=== PATIENT | female | born 1960 | race Hispanic/Latino ===

== ENCOUNTER 2018-02-07 11:53 | Outpatient (CLI) | payer OTHER ==
[2018-02-07] MEDS ORDERED: PROVENTIL IH ONE (12:54)
== END 2018-02-07 11:54 | disposition home or self-care (01) ==
LOC: PF 11:53
PROVIDERS: ATTEND Internal Medicine
DX: J44.9 Chronic obstructive pulmonary disease, unspecified (principal)
CPT/HCPCS: 94060; 94640

== ENCOUNTER 2018-08-21 11:12 | Inpatient (IN) | payer MEDICAID, MEDICARE, OTHER ==
[2018-08-21] MEDS ORDERED: DUONEB *Not for PRN Use IH ONE (11:42)
[2018-08-21] MEDS ORDERED: PROVENTIL IH ONE (12:15)
[2018-08-21] MEDS ORDERED: ATROVENT IH ONE (12:15)
[2018-08-21] MEDS ORDERED: MAGNESIUM SULFATE 2GM/50ML 2 GM/50 ML BAG IV ONE (12:15)
[2018-08-21] MEDS ORDERED: SOLU-Medrol IV ONE (12:15)
--- NOTE | 2018-08-21 12:24 | Emergency Department Report ---
HPI - General Chief Complaint: Dyspnea/Respdistress Time Seen by Provider: 08/21/18 11:51 - HPI HPI: Room 9 The patient is a 58-year-old female presenting with a chief complaint of shortness of breath. The patient experienced a productive cough for the past 4 days. Family states patient has had chest congestion as well as weakness does not get out of bed. The patient went to her primary physician's office today and was found to be hypoxic with an SPO2 in the 80s. Patient's was subsequently sent to the ED via EMS. The patient arrives to the ED wearing a 100% nonrebreather. The patient was taken off the nonrebreather and placed on 3 L nasal cannula by Respiratory therapy Location: Lungs Duration: 4 days Quality: Hypoxic Severity: Moderate Modifying factors: [see above] Context: [see above] Mode of transportation: [not driving] ED Past Medical Hx - Past Medical History Previous Medical History?: Yes Hx Psychiatric Treatment: Yes (anxiety, depression) Hx Asthma: Yes Hx COPD: Yes (2 L home O2) Additional medical history: fibromylgia - Surgical History Past Surgical History?: No - Family History Family history: no significant - Social History Smoking Status: Former Smoker (none 1 year) Substance Use Type: None (denies illicit drug use) ED Review of Systems ROS: Stated complaint: FERNANDA Other details as noted in HPI Constitutional: malaise Eyes: denies: eye pain ENT: denies: throat pain Respiratory: cough, shortness of breath, wheezing Cardiovascular: denies: chest pain Endocrine: no symptoms reported Gastrointestinal: denies: abdominal pain Genitourinary: denies: dysuria Musculoskeletal: myalgia Neurological: denies: headache Physical Exam - Physical Exam Vital Signs: Vital Signs 08/21/18 11:37 Pulse Rate 120 H Respiratory 23 Rate Blood Pressure 135/80 O2 Sat by Pulse 86 Oximetry Physical Exam: GENERAL: The patient is well-developed well-nourished female lying on stretcher using accessory muscles HEENT: Normocephalic. Atraumatic. Extraocular motions are intact. Patient has moist mucous membranes. NECK: Supple. Trachea midline CHEST/LUNGS: Diffusely diminished. Wheezing diffusely. Accessory muscle use. HEART/CARDIOVASCULAR: Regular. There is no tachycardia. There is no gallop rub or murmur. ABDOMEN: Abdomen is soft, nontender. Patient has normal bowel sounds. There is no abdominal distention. SKIN: There is no rash. There is no diaphoresis. NEURO: The patient is awake and oriented. The patient is cooperative. The patient has normal speech MUSCULOSKELETAL: There is no evidence of acute injury. ED Course Vital Signs 08/21/18 11:37 Pulse Rate 120 H Respiratory 23 Rate Blood Pressure 135/80 O2 Sat by Pulse 86 Oximetry ED Medical Decision Making - Lab Data Result diagrams: 08/21/18 12:31 08/21/18 13:12 Laboratory Tests 08/21/18 08/21/18 08/21/18 12:20 12:31 13:12 WBC 8.7 RBC 4.59 Hgb 14.5 H Hct 43.5 H MCV 95 MCH 32 MCHC 33 RDW 12.8 L Plt Count 302 Add Manual Diff Complete Total Counted 100 Seg Neutrophils % Correctional Nurse Seg Neuts % (Manual) 98.0 H Band Neutrophils % 0 Lymphocytes % (Manual) 2.0 L Reactive Lymphs % (Man) 0 Monocytes % (Manual) 0 Eosinophils % (Manual) 0 Basophils % (Manual) 0 Metamyelocytes % 0 Myelocytes % 0 Promyelocytes % 0 Blast Cells % 0 Nucleated RBC % Not Reportable Seg Neutrophils # Man 8.5 H Band Neutrophils # 0.0 Lymphocytes # (Manual) 0.2 L Abs React Lymphs (Man) 0.0 Monocytes # (Manual) 0.0 Eosinophils # (Manual) 0.0 Basophils # (Manual) 0.0 Metamyelocytes # 0.0 Myelocytes # 0.0 Promyelocytes # 0.0 Blast Cells # 0.0 WBC Morphology Not Reportable Hypersegmented Neuts Not Reportable Hyposegmented Neuts Not Reportable Hypogranular Neuts Not Reportable Smudge Cells Not Reportable Toxic Granulation Not Reportable Toxic Vacuolation Not Reportable Dohle Bodies Not Reportable Pelger-Huet Anomaly Not Reportable Jory Rods Not Reportable Platelet Estimate Consistent w auto Clumped Platelets Not Reportable Plt Clumps, EDTA Not Reportable Large Platelets Not Reportable Giant Platelets Not Reportable Platelet Satelliting Not Reportable Plt Morphology Comment Not Reportable RBC Morphology Not Reportable Dimorphic RBCs Not Reportable Polychromasia Not Reportable Hypochromasia Not Reportable Poikilocytosis 1+ Anisocytosis 1+ Microcytosis Not Reportable Macrocytosis Not Reportable Spherocytes Not Reportable Pappenheimer Bodies Not Reportable Sickle Cells Not Reportable Target Cells Not Reportable Tear Drop Cells Not Reportable Ovalocytes Not Reportable Helmet Cells Not Reportable [place] Bodies Not Reportable [place] Rings Not Reportable Beth Cells Not Reportable Bite Cells Not Reportable Crenated Cell Not Reportable Elliptocytes Not Reportable Acanthocytes (Spur) Not Reportable Rouleaux Not Reportable Hemoglobin C Crystals Not Reportable Schistocytes Not Reportable Malaria parasites Not Reportable Eugenio Bodies Not Reportable Hem Pathologist Commnt No PT 13.3 INR 0.95 APTT 27.2 POC ABG pH 7.181 L POC ABG pCO2 96.0 H POC ABG pO2 195 H POC ABG HCO3 35.9 POC ABG Total CO2 39 POC ABG O2 Sat 99 POC ABG Base Excess 8 FiO2 36 Sodium Potassium Chloride Carbon Dioxide Anion Gap BUN Creatinine Estimated GFR BUN/Creatinine Ratio Glucose Calcium Total Creatine Kinase CK-MB (CK-2) CK-MB (CK-2) Rel Index Troponin T NT-Pro-B Natriuret Pep 08/21/18 13:12 WBC RBC Hgb Hct MCV MCH MCHC RDW Plt Count Add Manual Diff Total Counted Seg Neutrophils % Seg Neuts % (Manual) Band Neutrophils % Lymphocytes % (Manual) Reactive Lymphs % (Man) Monocytes % (Manual) Eosinophils % (Manual) Basophils % (Manual) Metamyelocytes % Myelocytes % Promyelocytes % Blast Cells % Nucleated RBC % Seg Neutrophils # Man Band Neutrophils # Lymphocytes # (Manual) Abs React Lymphs (Man) Monocytes # (Manual) Eosinophils # (Manual) Basophils # (Manual) Metamyelocytes # Myelocytes # Promyelocytes # Blast Cells # WBC Morphology Hypersegmented Neuts Hyposegmented Neuts Hypogranular Neuts Smudge Cells Toxic Granulation Toxic Vacuolation Dohle Bodies Pelger-Huet Anomaly Jory Rods Platelet Estimate Clumped Platelets Plt Clumps, EDTA Large Platelets Giant Platelets Platelet Satelliting Plt Morphology Comment RBC Morphology Dimorphic RBCs Polychromasia Hypochromasia Poikilocytosis Anisocytosis Microcytosis Macrocytosis Spherocytes Pappenheimer Bodies Sickle Cells Target Cells Tear Drop Cells Ovalocytes Helmet Cells [place] Bodies [place] Rings Beth Cells Bite Cells Crenated Cell Elliptocytes Acanthocytes (Spur) Rouleaux Hemoglobin C Crystals Schistocytes Malaria parasites Eugenio Bodies Hem Pathologist Commnt PT INR APTT POC ABG pH POC ABG pCO2 POC ABG pO2 POC ABG HCO3 POC ABG Total CO2 POC ABG O2 Sat POC ABG Base Excess FiO2 Sodium 131 L Potassium 4.9 Chloride 88.6 L Carbon Dioxide 32 H Anion Gap 15 BUN 9 Creatinine 0.5 L Estimated GFR > 60 BUN/Creatinine Ratio 18 Glucose 110 H Calcium 9.0 Total Creatine Kinase 114 CK-MB (CK-2) 8.0 H CK-MB (CK-2) Rel Index 7.0 H Troponin T < 0.010 NT-Pro-B Natriuret Pep 719.5 - EKG Data -: EKG Interpreted by Me EKG shows normal: sinus rhythm Rate: tachycardia (103 bpm) - EKG Data When compared to previous EKG there are: previous EKG unavailable Interpretation: other (no ischemic changes seen) - Radiology Data Radiology results: report reviewed (chest x-ray), image reviewed (chest x-ray) interpreted by me: Chest x-ray-no focal infiltrates, no pneumothorax [address] [address] XRay Report Signed Patient: MICHAEL TRUJILLO MR#: [id number] : 1960 Acct:[id number] Age/Sex: 58 / F ADM Date: 08/21/18 Loc: ED Attending Dr: Ordering Physician: LINNEA STEINER MD Date of Service: 08/21/18 Procedure(s): XR chest 1V ap Accession Number(s): [id number] cc: LINNEA STEINER MD Fluoro Time In Minutes: AP CHEST: HISTORY: Shortness of breath The lungs are hyperinflated consistent with advanced emphysema. There is minor linear scarring in the right upper lobe. No obvious pneumonia, mass, pleural effusion or pneumothorax. Heart size is within normal limits. The bony structures are grossly intact. IMPRESSION: Emphysema. Transcribed By: TTR Dictated By: MAGNUS MELLO JR, MD Electronically Authenticated By: MAGNUS MELLO JR, MD Signed Date/Time: 08/21/181321 DD/ 21 TD/TT: 08/21/181321 - Differential Diagnosis COPD exacerbation, pneumonia, respiratory failure Critical care attestation.: If time is entered above; I have spent that time in minutes in the direct care of this critically ill patient, excluding procedure time. ED Disposition Clinical Impression: COPD exacerbation, Hypercapnia Disposition: OP ADMIT IP TO THIS HOSP Is pt being admited?: Yes Does the pt Need Aspirin: No Condition: Fair Instructions: Chronic Obstructive Pulmonary Disease (ED) Referrals: WILBERTO CRAWFORD MD [Primary Care Provider] - 3-5 Days Time of Disposition: 14:04 (hospitalist paged (Dr Carlin))
[2018-08-21] MEDS ORDERED: ATIVAN IV ONE (12:27)
[2018-08-21 12:48] LABS: Hematocrit 43.5 % (30.3-42.9); Hemoglobin 14.5 gm/dl (10.1-14.3); Mean Corpuscular HGB Conc 33 % (30-34); Mean Corpuscular Volume 95 fl (79-97); Platelet Count 302 K/mm3 (140-440); Red Blood Count 4.59 M/mm3 (3.65-5.03); Red Cell Distribution Width 12.8 % (13.2-15.2)
[2018-08-21 13:20] LABS: Basophils % (Manual) 0 % (0.0-1.8); Monocytes % (Manual) 0 % (0.0-7.3); Total Cells Counted 100
[2018-08-21 13:21] LABS: Anisocytosis 1+; Eosinophils % (Manual) 0 % (0.0-4.3); Platelet Estimate Consistent w Auto; Poikilocytosis 1+
--- NOTE | 2018-08-21 13:25 | XRay Report ---
AP CHEST: HISTORY: Shortness of breath The lungs are hyperinflated consistent with advanced emphysema. There is minor linear scarring in the right upper lobe. No obvious pneumonia, mass, pleural effusion or pneumothorax. Heart size is within normal limits. The bony structures are grossly intact. IMPRESSION: Emphysema.
[2018-08-21 13:45] LABS: INR 0.95 (0.87-1.13)
[2018-08-21 13:46] LABS: Partial Thromboplastin Time 27.2 Sec. (24.2-36.6)
[2018-08-21 13:52] LABS: BUN/Creatinine Ratio 18; Blood Urea Nitrogen 9 mg/dL (7-17); Hemolysis Index 8
[2018-08-21] MEDS ORDERED: PROVENTIL IH PRN ×2 (18:45→20:39)
[2018-08-21] MEDS ORDERED: SOLU-Medrol IV SCH (20:00)
[2018-08-21] MEDS ORDERED: TYLENOL PO PRN (20:35)
[2018-08-21] MEDS ORDERED: ZOFRAN IV PRN (20:35)
[2018-08-21] MEDS ORDERED: SODIUM CHLORIDE FLUSH SYRINGE 10 ML IV PRN (20:35)
[2018-08-21] MEDS ORDERED: DILAUDID IV PRN (20:35)
[2018-08-21] MEDS ORDERED: NON-FORMULARY (Loratadine [Loratadine] 10 MG) PO SCH (20:45)
[2018-08-21] MEDS ORDERED: LEVAQUIN 750MG/150ML 750 MG/150 ML BAG IV SCH (21:00)
[2018-08-21] MEDS: ROCEPHIN/NS 2 GM/100 ML 2 GM/100 ML BAG IV SCH (21:28)
[2018-08-21] MEDS ORDERED: ZESTRIL ONE (21:51)
[2018-08-21] MEDS ORDERED: SOLU-Medrol ONE (21:51)
[2018-08-21] MEDS ORDERED: PEPCID IV ONE (21:51)
[2018-08-21] MEDS: ZITHROMAX 500 MG in NACL 0.9% 250ML 250 ML IV SCH (21:55)
[2018-08-21] MEDS ORDERED: PEPCID ONE (21:56)
[2018-08-21] MEDS: ZESTRIL PO SCH (22:00)
[2018-08-21] MEDS ORDERED: PEPCID IV SCH (22:00)
[2018-08-21] MEDS: SODIUM CHLORIDE FLUSH SYRINGE 10 ML IV SCH (22:10)
[2018-08-21] MEDS: PEPCID PO SCH (22:13)
[2018-08-21] MEDS ORDERED: PERCOCET 5/325 ONE (22:15)
[2018-08-21] MEDS: PERCOCET 5/325 PO PRN (22:18)
[2018-08-21] MEDS ORDERED: NACL 0.9% 1000 ML 1,000 ML ONE (22:25)
[2018-08-21] MEDS ORDERED: CLARITIN ONE (22:25)
[2018-08-21] MEDS ORDERED: FLEXERIL ONE (22:25)
[2018-08-21] MEDS: NACL 0.9% 1000 ML 1,000 ML IV SCH (22:28)
[2018-08-21] MEDS ORDERED: ZOFRAN ONE (22:28)
[2018-08-21] MEDS: FLEXERIL PO PRN (22:30)
[2018-08-21] MEDS: CLARITIN PO SCH (22:36)
[2018-08-21] MEDS ORDERED: XANAX ONE (22:42)
[2018-08-21] MEDS: XANAX PO SCH (22:48)
[2018-08-22] MEDS ORDERED: LEVAQUIN 750MG/150ML 750 MG/150 ML BAG IV ONE (00:03)
[2018-08-22] MEDS ORDERED: SOLU-Medrol ONE ×4 (00:10→14:13)
[2018-08-22] MEDS: SOLU-Medrol IV SCH ×4 (00:37→21:29)
[2018-08-22 06:11] LABS: Basophils % (Auto) 0.5 % (0.0-1.8); Hematocrit 38.9 % (30.3-42.9); Hemoglobin 12.9 gm/dl (10.1-14.3); Lymphocytes # (Auto) 0.3 K/mm3 (1.2-5.4); Lymphocytes % (Auto) 6.9 % (13.4-35.0); Mean Corpuscular HGB Conc 33 % (30-34); Mean Corpuscular Volume 95 fl (79-97); Monocytes # (Auto) 0.2 K/mm3 (0.0-0.8); Monocytes % (Auto) 3.3 % (0.0-7.3); Platelet Count 245 K/mm3 (140-440); Red Blood Count 4.09 M/mm3 (3.65-5.03)
[2018-08-22 06:22] LABS: BUN/Creatinine Ratio 48; Blood Urea Nitrogen 19 mg/dL (7-17); Calcium 8.2 mg/dL (8.4-10.2); Hemolysis Index 76
--- NOTE | 2018-08-22 06:30 | History and Physical Report ---
History of Present Illness Date of examination: 08/21/18 Date of admission: 08/21/18 14:19 Chief complaint: Increasing SOB for 4 days and Cough for 4 days History of present illness: 58 ny/owith pmh of severe COPD and Fibromyalgia sent from pcp's office for low oxygen saturation.Patienthas been having cough and phlegm for 4 days.No fever or chills.Cough productive of mucoid sputum.Patienthad sats in 80's.With non rebreather O2 improved to 100 percent.Former smoker.Stopped 1 year ago.No exacerbating or relieving factors.Sent by EMS from EMS office Past Medical History Previous Medical History?: Yes Hx Psychiatric Treatment: Yes (anxiety, depression) Hx Asthma: Yes Hx COPD: Yes (2 L home O2) Additional medical history: fibromylgia Surgical History Past Surgical History?: No Family History Family history: no significant Social History Smoking Status: Former Smoker (none 1 year) Substance Use Type: None (denies illicit drug use) Review of Systems ROS: Stated complaint: FERNANDA Other details as noted in HPI Constitutional: malaise Eyes: denies: eye pain ENT: denies: throat pain Respiratory: cough, shortness of breath, wheezing Cardiovascular: denies: chest pain Endocrine: no symptoms reported Gastrointestinal: denies: abdominal pain Genitourinary: denies: dysuria Musculoskeletal: myalgia Neurological: denies: headache 14 point review of systems done--Other was negative Medications and Allergies Allergies Allergy/AdvReac Type Severity Reaction Status Date / Time No Known Allergies Allergy Unverified 08/21/18 11:37 Home Medications Medication Instructions Recorded Confirmed Last Taken Type ALPRAZolam [Xanax] 1 mg PO BID 08/21/18 08/21/18 Unknown History Cyclobenzaprine [Flexeril] 10 mg PO TID PRN 08/21/18 08/21/18 Unknown History Ibuprofen 800 mg PO TIDWM 08/21/18 08/21/18 Unknown History Lisinopril [Zestril TAB] 10 mg PO QDAY 08/21/18 08/21/18 Unknown History Loratadine 10 mg PO DAILY 08/21/18 08/21/18 Unknown History Pregabalin [Lyrica] 100 mg PO TID 08/21/18 08/21/18 Unknown History Active Meds: Active Medications Acetaminophen (Tylenol) 650 mg PO Q4H PRN PRN Reason: Pain MILD(1-3)/Fever >100.5/LIAO Albuterol (Proventil) 2.5 mg IH Q4HRT PRN PRN Reason: Shortness Of Breath Albuterol/Ipratropium (Duoneb *Not For Prn Use*) 1 ampul IH QIDRT [facility] Alprazolam (Xanax) 1 mg PO BID [facility] Last Admin: 08/21/18 22:48 Dose: 1 mg Documented by: Cyclobenzaprine HCl (Flexeril) 10 mg PO TID PRN PRN Reason: Muscle Spasm Last Admin: 08/21/18 22:30 Dose: 10 mg Documented by: Famotidine (Pepcid) 20 mg PO BID [facility] Last Admin: 08/21/18 22:13 Dose: 20 mg Documented by: Hydromorphone HCl (Dilaudid) 0.25 mg IV Q3H PRN PRN Reason: Pain, Moderate (4-6) Azithromycin 500 mg/ Sodium (Chloride) 250 mls @ 250 mls/hr IV Q24HR [facility] Last Admin: 08/21/18 21:55 Dose: 250 mls/hr Documented by: Ceftriaxone Sodium (Rocephin/Ns 2 Gm/100 Ml) 2 gm in 100 mls @ 200 mls/hr IV Q24HR [facility]; Protocol Last Admin: 08/21/18 21:28 Dose: 200 mls/hr Documented by: Levofloxacin/Dextrose (Levaquin 750mg/150ml) 750 mg in 150 mls @ 100 mls/hr IV Q24HR@2200 [facility]; Protocol Last Admin: 08/22/18 00:37 Dose: 100 mls/hr Documented by: Sodium Chloride (Nacl 0.9% 1000 Ml) 1,000 mls @ 42 mls/hr IV DIRECT [facility] Last Admin: 08/21/18 22:28 Dose: 42 mls/hr Documented by: Ibuprofen (Motrin) 800 mg PO TIDWM [facility] Lisinopril (Zestril) 10 mg PO QDAY [facility] Last Admin: 08/21/18 22:00 Dose: 10 mg Documented by: Loratadine (Claritin) 10 mg PO DAILY [facility] Last Admin: 08/21/18 22:36 Dose: 10 mg Documented by: Methylprednisolone Sodium Succinate (Solu-Medrol) 80 mg IV Q8HR [facility] Last Admin: 08/22/18 00:37 Dose: 80 mg Documented by: Ondansetron HCl (Zofran) 4 mg IV Q8H PRN PRN Reason: Nausea And Vomiting Last Admin: 08/21/18 22:34 Dose: 4 mg Documented by: Oxycodone/Acetaminophen (Percocet 5/325) 1 tab PO Q6H PRN PRN Reason: Pain, Moderate (4-6) Last Admin: 08/21/18 22:18 Dose: 1 tab Documented by: Pregabalin (Lyrica) 25 mg PO TID [facility] Pregabalin (Lyrica) 75 mg PO TID [facility] Sodium Chloride (Sodium Chloride Flush Syringe 10 Ml) 10 ml IV BID [facility] Last Admin: 08/21/18 22:10 Dose: 10 ml Documented by: Sodium Chloride (Sodium Chloride Flush Syringe 10 Ml) 10 ml IV PRN PRN PRN Reason: LINE FLUSH Exam - Constitutional Vitals: Temp Pulse Resp BP Pulse Ox 94 H 18 104/57 97 08/22/18 05:00 08/22/18 05:00 08/22/18 05:00 08/22/18 03:30 General appearance: Present: mild distress, well-nourished - EENT Eyes: Present: PERRL ENT: hearing intact, clear oral mucosa - Neck Neck: Present: supple, normal ROM - Respiratory Respiratory effort: normal Respiratory: bilateral: diminished, rhonchi, wheezing - Cardiovascular Heart rate: 102 Rhythm: regular Heart Sounds: Present: S1 & S2. Absent: rub, click - Extremities Extremities: no ischemia, pulses intact, pulses symmetrical, No edema Peripheral Pulses: within normal limits - Abdominal General gastrointestinal: Present: soft, non-tender, non-distended, normal bowel sounds Female genitourinary: Present: normal - Rectal Rectal Exam: deferred - Integumentary Integumentary: Present: clear, warm, dry - Musculoskeletal Musculoskeletal: gait normal, strength equal bilaterally - Psychiatric Psychiatric: appropriate mood/affect, intact judgment & insight - Neurologic Neurologic: CNII-XII intact, moves all extremities - Allied Health Allied health notes reviewed: nursing, case management Results - Labs CBC & Chem 7: 08/22/18 05:44 08/21/18 13:12 Labs: Laboratory Last Values WBC 4.6 K/mm3 (4.5-11.0) 08/22/18 05:44 RBC 4.09 M/mm3 (3.65-5.03) 08/22/18 05:44 Hgb 12.9 gm/dl (10.1-14.3) 08/22/18 05:44 Hct 38.9 % (30.3-42.9) 08/22/18 05:44 MCV 95 fl (79-97) 08/22/18 05:44 MCH 32 pg (28-32) 08/22/18 05:44 MCHC 33 % (30-34) 08/22/18 05:44 RDW 13.0 % (13.2-15.2) L 08/22/18 05:44 Plt Count 245 K/mm3 (140-440) 08/22/18 05:44 Lymph % (Auto) 6.9 % (13.4-35.0) L 08/22/18 05:44 [place] % (Auto) 3.3 % (0.0-7.3) 08/22/18 05:44 Eos % (Auto) 0.0 % (0.0-4.3) 08/22/18 05:44 Baso % (Auto) 0.5 % (0.0-1.8) 08/22/18 05:44 Lymph # 0.3 K/mm3 (1.2-5.4) L 08/22/18 05:44 [place] # 0.2 K/mm3 (0.0-0.8) 08/22/18 05:44 Eos # 0.0 K/mm3 (0.0-0.4) 08/22/18 05:44 Baso # 0.0 K/mm3 (0.0-0.1) 08/22/18 05:44 Add Manual Diff Complete 08/21/18 12:31 Total Counted 100 08/21/18 12:31 Seg Neutrophils % 89.3 % (40.0-70.0) H 08/22/18 05:44 Seg Neuts % (Manual) 98.0 % (40.0-70.0) H 08/21/18 12:31 Band Neutrophils % 0 % 08/21/18 12:31 Lymphocytes % (Manual) 2.0 % (13.4-35.0) L 08/21/18 12:31 Reactive Lymphs % (Man) 0 % 08/21/18 12:31 Monocytes % (Manual) 0 % (0.0-7.3) 08/21/18 12:31 Eosinophils % (Manual) 0 % (0.0-4.3) 08/21/18 12:31 Basophils % (Manual) 0 % (0.0-1.8) 08/21/18 12:31 Metamyelocytes % 0 % 08/21/18 12:31 Myelocytes % 0 % 08/21/18 12:31 Promyelocytes % 0 % 08/21/18 12:31 Blast Cells % 0 % 08/21/18 12:31 Nucleated RBC % Not Reportable 08/21/18 12:31 Seg Neutrophils # 4.1 K/mm3 (1.8-7.7) 08/22/18 05:44 Seg Neutrophils # Man 8.5 K/mm3 (1.8-7.7) H 08/21/18 12:31 Band Neutrophils # 0.0 K/mm3 08/21/18 12:31 Lymphocytes # (Manual) 0.2 K/mm3 (1.2-5.4) L 08/21/18 12:31 Abs React Lymphs (Man) 0.0 K/mm3 08/21/18 12:31 Monocytes # (Manual) 0.0 K/mm3 (0.0-0.8) 08/21/18 12:31 Eosinophils # (Manual) 0.0 K/mm3 (0.0-0.4) 08/21/18 12:31 Basophils # (Manual) 0.0 K/mm3 (0.0-0.1) 08/21/18 12:31 Metamyelocytes # 0.0 K/mm3 08/21/18 12:31 Myelocytes # 0.0 K/mm3 08/21/18 12:31 Promyelocytes # 0.0 K/mm3 08/21/18 12:31 Blast Cells # 0.0 K/mm3 08/21/18 12:31 WBC Morphology Not Reportable 08/21/18 12:31 Hypersegmented Neuts Not Reportable 08/21/18 12:31 Hyposegmented Neuts Not Reportable 08/21/18 12:31 Hypogranular Neuts Not Reportable 08/21/18 12:31 Smudge Cells Not Reportable 08/21/18 12:31 Toxic Granulation Not Reportable 08/21/18 12:31 Toxic Vacuolation Not Reportable 08/21/18 12:31 Dohle Bodies Not Reportable 08/21/18 12:31 Pelger-Huet Anomaly Not Reportable 08/21/18 12:31 Jory Rods Not Reportable 08/21/18 12:31 Platelet Estimate Consistent w auto 08/21/18 12:31 Clumped Platelets Not Reportable 08/21/18 12:31 Plt Clumps, EDTA Not Reportable 08/21/18 12:31 Large Platelets Not Reportable 08/21/18 12:31 Giant Platelets Not Reportable 08/21/18 12:31 Platelet Satelliting Not Reportable 08/21/18 12:31 Plt Morphology Comment Not Reportable 08/21/18 12:31 RBC Morphology Not Reportable 08/21/18 12:31 Dimorphic RBCs Not Reportable 08/21/18 12:31 Polychromasia Not Reportable 08/21/18 12:31 Hypochromasia Not Reportable 08/21/18 12:31 Poikilocytosis 1+ 08/21/18 12:31 Anisocytosis 1+ 08/21/18 12:31 Microcytosis Not Reportable 08/21/18 12:31 Macrocytosis Not Reportable 08/21/18 12:31 Spherocytes Not Reportable 08/21/18 12:31 Pappenheimer Bodies Not Reportable 08/21/18 12:31 Sickle Cells Not Reportable 08/21/18 12:31 Target Cells Not Reportable 08/21/18 12:31 Tear Drop Cells Not Reportable 08/21/18 12:31 Ovalocytes Not Reportable 08/21/18 12:31 Helmet Cells Not Reportable 08/21/18 12:31 [place] Bodies Not Reportable 08/21/18 12:31 [place] Rings Not Reportable 08/21/18 12:31 [place] Cells Not Reportable 08/21/18 12:31 Bite Cells Not Reportable 08/21/18 12:31 Crenated Cell Not Reportable 08/21/18 12:31 Elliptocytes Not Reportable 08/21/18 12:31 Acanthocytes (Spur) Not Reportable 08/21/18 12:31 Rouleaux Not Reportable 08/21/18 12:31 Hemoglobin C Crystals Not Reportable 08/21/18 12:31 Schistocytes Not Reportable 08/21/18 12:31 Malaria parasites Not Reportable 08/21/18 12:31 Eugenio Bodies Not Reportable 08/21/18 12:31 Hem Pathologist Commnt No 08/21/18 12:31 PT 13.3 Sec. (12.2-14.9) 08/21/18 13:12 INR 0.95 (0.87-1.13) 08/21/18 13:12 APTT 27.2 Sec. (24.2-36.6) 08/21/18 13:12 POC ABG pH 7.217 (7.35-7.45) L 08/21/18 15:50 POC ABG pCO2 86.5 (35-45) H 08/21/18 15:50 POC ABG pO2 74 (80-105) L 08/21/18 15:50 POC ABG HCO3 35.2 08/21/18 15:50 POC ABG Total CO2 38 08/21/18 15:50 POC ABG O2 Sat 90 08/21/18 15:50 POC ABG Base Excess 7 08/21/18 15:50 FiO2 35 % 08/21/18 15:50 Sodium 131 mmol/L (137-145) L 08/21/18 13:12 Potassium 4.9 mmol/L (3.6-5.0) 08/21/18 13:12 Chloride 88.6 mmol/L (98-107) L 08/21/18 13:12 Carbon Dioxide 32 mmol/L (22-30) H 08/21/18 13:12 Anion Gap 15 mmol/L 08/21/18 13:12 BUN 9 mg/dL (7-17) 08/21/18 13:12 Creatinine 0.5 mg/dL (0.7-1.2) L 08/21/18 13:12 Estimated GFR > 60 ml/min 08/21/18 13:12 BUN/Creatinine Ratio 18 % 08/21/18 13:12 Glucose 110 mg/dL (65-100) H 08/21/18 13:12 Hemoglobin A1c 5.4 % (4-6) 08/21/18 12:41 Calcium 9.0 mg/dL (8.4-10.2) 08/21/18 13:12 Total Creatine Kinase 114 units/L (30-135) 08/21/18 13:12 CK-MB (CK-2) 8.0 ng/mL (0.0-4.0) H 08/21/18 13:12 CK-MB (CK-2) Rel Index 7.0 (0-4) H 08/21/18 13:12 Troponin T < 0.010 ng/mL (0.00-0.029) 08/21/18 13:12 NT-Pro-B Natriuret Pep 719.5 pg/mL (0-900) 08/21/18 13:12 Short CBC 08/21/18 08/22/18 Range/Units 12:31 05:44 WBC 8.7 4.6 (4.5-11.0) K/mm3 Hgb 14.5 H 12.9 (10.1-14.3) gm/dl Hct 43.5 H 38.9 (30.3-42.9) % Plt Count 302 245 (140-440) K/mm3 BMP 08/21/18 08/22/18 13:12 05:44 Sodium 131 L 136 L Potassium 4.9 5.0 Chloride 88.6 L 96.8 L Carbon Dioxide 32 H 31 H BUN 9 19 H Creatinine 0.5 L 0.4 L Glucose 110 H 168 H Calcium 9.0 8.2 L Cardiac Enzymes 08/21/18 Range/Units 13:12 Total Creatine Kinase 114 (30-135) units/L CK-MB (CK-2) 8.0 H (0.0-4.0) ng/mL Troponin T < 0.010 (0.00-0.029) ng/mL - Imaging and Cardiology EKG: report reviewed (Sinus Tachycardia 103/min) Imaging and Cardiology: CXR IMPRESSION: Emphysema Assessment and Plan Advance Directives: Yes (Full code) VTE prophylaxis?: Chemical Plan of care discussed with patient/family: Yes - Patient Problems (1) Acute respiratory failure with hypercapnia Current Visit: Yes Status: Acute Plan to address problem: Patient has pco2 of 8.5 Duonebs IV Abx and IV SOlumedrol Bipap for now Intubate if necessary (2) COPD exacerbation Current Visit: Yes Status: Acute Plan to address problem: Duonebs IV Abx and IV SOlumedrol Bipap for now Intubate if necessary (3) HTN (hypertension) Current Visit: Yes Status: Chronic Qualifiers: Hypertension type: essential hypertension Qualified Code(s): I10 - Essential (primary) hypertension Plan to address problem: Cont Antihypertensives-Lisinopril (4) TYRONE (generalized anxiety disorder) Current Visit: Yes Status: Chronic Plan to address problem: Cont Xanax (5) Peripheral neuropathy Current Visit: Yes Status: Chronic Plan to address problem: Cont Gabapentin (6) DVT prophylaxis Current Visit: Yes Status: Acute Plan to address problem: On Lovenox and GI prophylaxis
[2018-08-22] MEDS: DUONEB *Not for PRN Use IH SCH ×5 (07:05→21:14)
[2018-08-22] MEDS ORDERED: DUONEB *Not for PRN Use IH SCH (08:00)
[2018-08-22] MEDS: IBUPROFEN PO SCH ×3 (08:00→18:36)
[2018-08-22] MEDS ORDERED: NON-FORMULARY (Pregabalin [Lyrica] 100 MG) PO SCH (08:00)
--- NOTE | 2018-08-22 08:25 | Progress Note ---
Assessment and Plan Assessment and plan: --Acute on chronic hypoxic respiratory failure; Secondary to COPD exacerbation Oxygen nebulizers and IV antibiotics and IV steroids and inhalation steroids, BiPAP as needed --Acute exacerbation of COPD; bronchodilators, nebulizers Steroids and antibiotics and supportive care --History of depression/anxiety; Continue Xanax --History of hypertension; moderate control, continue current antihypertensives, When necessary medications --Peripheral neuropathy; stable on gabapentin --DVT prophylaxis; Lovenox Closely monitor the patient and adjust management as needed Tapering dose of steroids, possible discharge in 1-2 days if stable Follow-up pulmonary evaluation and recommendations History Interval history: Patient was Admitted with acute on chronic respiratory failure Acute exacerbation of COPD No new events reported Vital signs noted Hospitalist Physical - Constitutional Vitals: Temp Pulse Resp BP Pulse Ox 94 H 18 104/57 97 08/22/18 05:00 08/22/18 05:00 08/22/18 05:00 08/22/18 03:30 General appearance: Present: mild distress, well-nourished - EENT Eyes: Present: PERRL, EOM intact - Neck Neck: Present: supple, normal ROM - Respiratory Respiratory effort: normal Respiratory: bilateral: diminished, rhonchi, negative: rales, wheezing - Cardiovascular Rhythm: regular Heart Sounds: Present: S1 & S2 - Extremities Extremities: no ischemia, No edema - Integumentary Integumentary: Present: clear, warm - Psychiatric Psychiatric: appropriate mood/affect, cooperative - Neurologic Neurologic: CNII-XII intact, moves all extremities Results - Labs CBC & Chem 7: 08/22/18 05:44 08/22/18 05:44 Labs: Laboratory Last Values WBC 4.6 K/mm3 (4.5-11.0) 08/22/18 05:44 RBC 4.09 M/mm3 (3.65-5.03) 08/22/18 05:44 Hgb 12.9 gm/dl (10.1-14.3) 08/22/18 05:44 Hct 38.9 % (30.3-42.9) 08/22/18 05:44 MCV 95 fl (79-97) 08/22/18 05:44 MCH 32 pg (28-32) 08/22/18 05:44 MCHC 33 % (30-34) 08/22/18 05:44 RDW 13.0 % (13.2-15.2) L 08/22/18 05:44 Plt Count 245 K/mm3 (140-440) 08/22/18 05:44 Lymph % (Auto) 6.9 % (13.4-35.0) L 08/22/18 05:44 [place] % (Auto) 3.3 % (0.0-7.3) 08/22/18 05:44 Eos % (Auto) 0.0 % (0.0-4.3) 08/22/18 05:44 Baso % (Auto) 0.5 % (0.0-1.8) 08/22/18 05:44 Lymph # 0.3 K/mm3 (1.2-5.4) L 08/22/18 05:44 [place] # 0.2 K/mm3 (0.0-0.8) 08/22/18 05:44 Eos # 0.0 K/mm3 (0.0-0.4) 08/22/18 05:44 Baso # 0.0 K/mm3 (0.0-0.1) 08/22/18 05:44 Add Manual Diff Complete 08/21/18 12:31 Total Counted 100 08/21/18 12:31 Seg Neutrophils % 89.3 % (40.0-70.0) H 08/22/18 05:44 Seg Neuts % (Manual) 98.0 % (40.0-70.0) H 08/21/18 12:31 Band Neutrophils % 0 % 08/21/18 12:31 Lymphocytes % (Manual) 2.0 % (13.4-35.0) L 08/21/18 12:31 Reactive Lymphs % (Man) 0 % 08/21/18 12:31 Monocytes % (Manual) 0 % (0.0-7.3) 08/21/18 12:31 Eosinophils % (Manual) 0 % (0.0-4.3) 08/21/18 12:31 Basophils % (Manual) 0 % (0.0-1.8) 08/21/18 12:31 Metamyelocytes % 0 % 08/21/18 12:31 Myelocytes % 0 % 08/21/18 12:31 Promyelocytes % 0 % 08/21/18 12:31 Blast Cells % 0 % 08/21/18 12:31 Nucleated RBC % Not Reportable 08/21/18 12:31 Seg Neutrophils # 4.1 K/mm3 (1.8-7.7) 08/22/18 05:44 Seg Neutrophils # Man 8.5 K/mm3 (1.8-7.7) H 08/21/18 12:31 Band Neutrophils # 0.0 K/mm3 08/21/18 12:31 Lymphocytes # (Manual) 0.2 K/mm3 (1.2-5.4) L 08/21/18 12:31 Abs React Lymphs (Man) 0.0 K/mm3 08/21/18 12:31 Monocytes # (Manual) 0.0 K/mm3 (0.0-0.8) 08/21/18 12:31 Eosinophils # (Manual) 0.0 K/mm3 (0.0-0.4) 08/21/18 12:31 Basophils # (Manual) 0.0 K/mm3 (0.0-0.1) 08/21/18 12:31 Metamyelocytes # 0.0 K/mm3 08/21/18 12:31 Myelocytes # 0.0 K/mm3 08/21/18 12:31 Promyelocytes # 0.0 K/mm3 08/21/18 12:31 Blast Cells # 0.0 K/mm3 08/21/18 12:31 WBC Morphology Not Reportable 08/21/18 12:31 Hypersegmented Neuts Not Reportable 08/21/18 12:31 Hyposegmented Neuts Not Reportable 08/21/18 12:31 Hypogranular Neuts Not Reportable 08/21/18 12:31 Smudge Cells Not Reportable 08/21/18 12:31 Toxic Granulation Not Reportable 08/21/18 12:31 Toxic Vacuolation Not Reportable 08/21/18 12:31 Dohle Bodies Not Reportable 08/21/18 12:31 Pelger-Huet Anomaly Not Reportable 08/21/18 12:31 Jory Rods Not Reportable 08/21/18 12:31 Platelet Estimate Consistent w auto 08/21/18 12:31 Clumped Platelets Not Reportable 08/21/18 12:31 Plt Clumps, EDTA Not Reportable 08/21/18 12:31 Large Platelets Not Reportable 08/21/18 12:31 Giant Platelets Not Reportable 08/21/18 12:31 Platelet Satelliting Not Reportable 08/21/18 12:31 Plt Morphology Comment Not Reportable 08/21/18 12:31 RBC Morphology Not Reportable 08/21/18 12:31 Dimorphic RBCs Not Reportable 08/21/18 12:31 Polychromasia Not Reportable 08/21/18 12:31 Hypochromasia Not Reportable 08/21/18 12:31 Poikilocytosis 1+ 08/21/18 12:31 Anisocytosis 1+ 08/21/18 12:31 Microcytosis Not Reportable 08/21/18 12:31 Macrocytosis Not Reportable 08/21/18 12:31 Spherocytes Not Reportable 08/21/18 12:31 Pappenheimer Bodies Not Reportable 08/21/18 12:31 Sickle Cells Not Reportable 08/21/18 12:31 Target Cells Not Reportable 08/21/18 12:31 Tear Drop Cells Not Reportable 08/21/18 12:31 Ovalocytes Not Reportable 08/21/18 12:31 Helmet Cells Not Reportable 08/21/18 12:31 [place] Bodies Not Reportable 08/21/18 12:31 [place] Rings Not Reportable 08/21/18 12:31 Beth Cells Not Reportable 08/21/18 12:31 Bite Cells Not Reportable 08/21/18 12:31 Crenated Cell Not Reportable 08/21/18 12:31 Elliptocytes Not Reportable 08/21/18 12:31 Acanthocytes (Spur) Not Reportable 08/21/18 12:31 Rouleaux Not Reportable 08/21/18 12:31 Hemoglobin C Crystals Not Reportable 08/21/18 12:31 Schistocytes Not Reportable 08/21/18 12:31 Malaria parasites Not Reportable 08/21/18 12:31 Eugenio Bodies Not Reportable 08/21/18 12:31 Hem Pathologist Commnt No 08/21/18 12:31 PT 13.3 Sec. (12.2-14.9) 08/21/18 13:12 INR 0.95 (0.87-1.13) 08/21/18 13:12 APTT 27.2 Sec. (24.2-36.6) 08/21/18 13:12 POC ABG pH 7.217 (7.35-7.45) L 08/21/18 15:50 POC ABG pCO2 86.5 (35-45) H 08/21/18 15:50 POC ABG pO2 74 (80-105) L 08/21/18 15:50 POC ABG HCO3 35.2 08/21/18 15:50 POC ABG Total CO2 38 08/21/18 15:50 POC ABG O2 Sat 90 08/21/18 15:50 POC ABG Base Excess 7 08/21/18 15:50 FiO2 35 % 08/21/18 15:50 Sodium 136 mmol/L (137-145) L 08/22/18 05:44 Potassium 5.0 mmol/L (3.6-5.0) 08/22/18 05:44 Chloride 96.8 mmol/L (98-107) L 08/22/18 05:44 Carbon Dioxide 31 mmol/L (22-30) H 08/22/18 05:44 Anion Gap 13 mmol/L 08/22/18 05:44 BUN 19 mg/dL (7-17) H 08/22/18 05:44 Creatinine 0.4 mg/dL (0.7-1.2) L 08/22/18 05:44 Estimated GFR > 60 ml/min 08/22/18 05:44 BUN/Creatinine Ratio 48 % 08/22/18 05:44 Glucose 168 mg/dL (65-100) H 08/22/18 05:44 Hemoglobin A1c 5.4 % (4-6) 08/21/18 12:41 Calcium 8.2 mg/dL (8.4-10.2) L 08/22/18 05:44 Total Creatine Kinase 114 units/L (30-135) 08/21/18 13:12 CK-MB (CK-2) 8.0 ng/mL (0.0-4.0) H 08/21/18 13:12 CK-MB (CK-2) Rel Index 7.0 (0-4) H 08/21/18 13:12 Troponin T < 0.010 ng/mL (0.00-0.029) 08/21/18 13:12 NT-Pro-B Natriuret Pep 719.5 pg/mL (0-900) 08/21/18 13:12
[2018-08-22] MEDS ORDERED: LYRICA ONE ×2 (11:05→12:02)
[2018-08-22] MEDS: LYRICA PO SCH ×5 (11:08→21:29)
[2018-08-22] MEDS ORDERED: XANAX ONE (11:58)
[2018-08-22] MEDS ORDERED: PEPCID ONE (12:00)
[2018-08-22] MEDS ORDERED: ZESTRIL ONE (12:00)
[2018-08-22] MEDS ORDERED: CLARITIN ONE (12:04)
[2018-08-22] MEDS: CLARITIN PO SCH (12:10)
[2018-08-22] MEDS: XANAX PO SCH ×2 (12:10→21:29)
[2018-08-22] MEDS: ZESTRIL PO SCH (12:10)
[2018-08-22] MEDS: PEPCID PO SCH ×2 (12:12→21:29)
[2018-08-22] MEDS: ROCEPHIN/NS 2 GM/100 ML 2 GM/100 ML BAG IV SCH (12:14)
[2018-08-22] MEDS: SODIUM CHLORIDE FLUSH SYRINGE 10 ML IV SCH ×2 (12:14→21:30)
[2018-08-22] MEDS ORDERED: IBUPROFEN ONE (12:22)
[2018-08-22] MEDS: ZITHROMAX 500 MG in NACL 0.9% 250ML 250 ML IV SCH (13:07)
--- NOTE | 2018-08-22 17:57 | Consultation ---
History of Present Illness Consult date: 08/22/18 Requesting physician: ORLANDO WRIGHT Reason for consult: COPD, other (Acute Hypoxemic Respiratory Failure) History of present illness: PCCM CONSULT NOTE (Full dictation # [id number]) Please see dictated notes for full details Medications and Allergies Allergies Allergy/AdvReac Type Severity Reaction Status Date / Time No Known Allergies Allergy Unverified 08/21/18 11:37 Home Medications Medication Instructions Recorded Confirmed Last Taken Type ALPRAZolam [Xanax] 1 mg PO BID 08/21/18 08/21/18 Unknown History Cyclobenzaprine [Flexeril] 10 mg PO TID PRN 08/21/18 08/21/18 Unknown History Ibuprofen 800 mg PO TIDWM 08/21/18 08/21/18 Unknown History Lisinopril [Zestril TAB] 10 mg PO QDAY 08/21/18 08/21/18 Unknown History Loratadine 10 mg PO DAILY 08/21/18 08/21/18 Unknown History Pregabalin [Lyrica] 100 mg PO TID 08/21/18 08/21/18 Unknown History Active Meds: Active Medications Acetaminophen (Tylenol) 650 mg PO Q4H PRN PRN Reason: Pain MILD(1-3)/Fever >100.5/LIAO Albuterol (Proventil) 2.5 mg IH Q4HRT PRN PRN Reason: Shortness Of Breath Albuterol/Ipratropium (Duoneb *Not For Prn Use*) 1 ampul IH QIDRT [facility] Last Admin: 08/22/18 17:45 Dose: 1 ampul Documented by: Alprazolam (Xanax) 1 mg PO BID [facility] Last Admin: 08/22/18 12:10 Dose: 1 mg Documented by: Cyclobenzaprine HCl (Flexeril) 10 mg PO TID PRN PRN Reason: Muscle Spasm Last Admin: 08/21/18 22:30 Dose: 10 mg Documented by: Famotidine (Pepcid) 20 mg PO BID [facility] Last Admin: 08/22/18 12:12 Dose: 20 mg Documented by: Hydromorphone HCl (Dilaudid) 0.25 mg IV Q3H PRN PRN Reason: Pain, Moderate (4-6) Azithromycin 500 mg/ Sodium (Chloride) 250 mls @ 250 mls/hr IV Q24HR [facility] Last Infusion: 08/22/18 14:07 Dose: Infused Documented by: Ceftriaxone Sodium (Rocephin/Ns 2 Gm/100 Ml) 2 gm in 100 mls @ 200 mls/hr IV Q24HR [facility]; Protocol Last Infusion: 08/22/18 12:44 Dose: Infused Documented by: Sodium Chloride (Nacl 0.9% 1000 Ml) 1,000 mls @ 42 mls/hr IV DIRECT [facility] Last Admin: 08/21/18 22:28 Dose: 42 mls/hr Documented by: Ibuprofen (Motrin) 800 mg PO TIDWM [facility] Last Admin: 08/22/18 12:21 Dose: 800 mg Documented by: Lisinopril (Zestril) 10 mg PO QDAY [facility] Last Admin: 08/22/18 12:10 Dose: 10 mg Documented by: Loratadine (Claritin) 10 mg PO DAILY [facility] Last Admin: 08/22/18 12:10 Dose: 10 mg Documented by: Methylprednisolone Sodium Succinate (Solu-Medrol) 80 mg IV Q8HR [facility] Last Admin: 08/22/18 14:13 Dose: 80 mg Documented by: Ondansetron HCl (Zofran) 4 mg IV Q8H PRN PRN Reason: Nausea And Vomiting Last Admin: 08/21/18 22:34 Dose: 4 mg Documented by: Oxycodone/Acetaminophen (Percocet 5/325) 1 tab PO Q6H PRN PRN Reason: Pain, Moderate (4-6) Last Admin: 08/21/18 22:18 Dose: 1 tab Documented by: Pregabalin (Lyrica) 25 mg PO TID [facility] Pregabalin (Lyrica) 75 mg PO TID [facility] Last Admin: 08/22/18 14:13 Dose: 75 mg Documented by: Sodium Chloride (Sodium Chloride Flush Syringe 10 Ml) 10 ml IV BID [facility] Last Admin: 08/22/18 12:14 Dose: 10 ml Documented by: Sodium Chloride (Sodium Chloride Flush Syringe 10 Ml) 10 ml IV PRN PRN PRN Reason: LINE FLUSH Physical Examination Vital signs: Vital Signs Pulse Ox 91 08/21/18 11:29 Results - Laboratory Findings CBC and BMP: 08/22/18 05:44 08/22/18 05:44 ABG POC ABG pH 7.296 (7.35-7.45) L 08/22/18 12:55 POC ABG pCO2 74.0 (35-45) H 08/22/18 12:55 POC ABG pO2 84 (80-105) 08/22/18 12:55 POC ABG HCO3 36.1 08/22/18 12:55 POC ABG Total CO2 38 08/22/18 12:55 POC ABG O2 Sat 94 08/22/18 12:55 PT/INR, D-dimer PT 13.3 Sec. (12.2-14.9) 08/21/18 13:12 INR 0.95 (0.87-1.13) 08/21/18 13:12 Abnormal lab findings: Abnormal Labs 08/21/18 08/21/18 08/21/18 12:20 12:31 13:12 Hgb 14.5 H Hct 43.5 H RDW 12.8 L Lymph % (Auto) Lymph # Seg Neutrophils % Seg Neuts % (Manual) 98.0 H Lymphocytes % (Manual) 2.0 L Seg Neutrophils # Man 8.5 H Lymphocytes # (Manual) 0.2 L POC ABG pH 7.181 L POC ABG pCO2 96.0 H POC ABG pO2 195 H Sodium 131 L Chloride 88.6 L Carbon Dioxide 32 H BUN Creatinine 0.5 L Glucose 110 H Calcium CK-MB (CK-2) 8.0 H CK-MB (CK-2) Rel Index 7.0 H 08/21/18 08/22/18 08/22/18 15:50 05:44 05:44 Hgb Hct RDW 13.0 L Lymph % (Auto) 6.9 L Lymph # 0.3 L Seg Neutrophils % 89.3 H Seg Neuts % (Manual) Lymphocytes % (Manual) Seg Neutrophils # Man Lymphocytes # (Manual) POC ABG pH 7.217 L POC ABG pCO2 86.5 H POC ABG pO2 74 L Sodium 136 L Chloride 96.8 L Carbon Dioxide 31 H BUN 19 H Creatinine 0.4 L Glucose 168 H Calcium 8.2 L CK-MB (CK-2) CK-MB (CK-2) Rel Index 08/22/18 12:55 Hgb Hct RDW Lymph % (Auto) Lymph # Seg Neutrophils % Seg Neuts % (Manual) Lymphocytes % (Manual) Seg Neutrophils # Man Lymphocytes # (Manual) POC ABG pH 7.296 L POC ABG pCO2 74.0 H POC ABG pO2 Sodium Chloride Carbon Dioxide BUN Creatinine Glucose Calcium CK-MB (CK-2) CK-MB (CK-2) Rel Index
[2018-08-23] MEDS: SOLU-Medrol IV SCH ×3 (05:24→22:40)
[2018-08-23] MEDS: NACL 0.9% 1000 ML 1,000 ML IV SCH ×2 (05:25→18:52)
[2018-08-23] MEDS: DUONEB *Not for PRN Use IH SCH ×4 (08:45→21:27)
[2018-08-23] MEDS: SODIUM CHLORIDE FLUSH SYRINGE 10 ML IV SCH ×2 (09:30→22:44)
[2018-08-23] MEDS: LYRICA PO SCH ×7 (09:32→21:26)
[2018-08-23] MEDS: IBUPROFEN PO SCH ×3 (09:34→17:00)
[2018-08-23] MEDS: CLARITIN PO SCH (09:35)
[2018-08-23] MEDS: XANAX PO SCH ×2 (09:36→22:43)
[2018-08-23] MEDS: PEPCID PO SCH ×2 (09:36→22:44)
[2018-08-23] MEDS: ZESTRIL PO SCH (09:37)
[2018-08-23] MEDS: ROCEPHIN/NS 2 GM/100 ML 2 GM/100 ML BAG IV SCH (09:43)
[2018-08-23] MEDS: ZITHROMAX 500 MG in NACL 0.9% 250ML 250 ML IV SCH (11:40)
[2018-08-23] MEDS ORDERED: LOVENOX SUB-Q SCH (16:00)
[2018-08-23] MEDS: LOVENOX SUB-Q SCH (18:41)
--- NOTE | 2018-08-23 19:04 | Progress Note ---
Assessment and Plan Acute on chronic hypoxemic hypercapnic respiratory failure. Respiratory Acidosis Acute chronic obstructive pulmonary disease exacerbation. Tobacco use disorder. Anxiety disorder. History of depression. Mild hyponatremia. Elevated serum glucose. - continue supplemental but restrictive oxygen therapy to keep sats approx 88- 92% acutely - continue bronchodilators (VIDA & LABA) with pulmonary hygiene per RT - continue sysytemic steroids with a slow taper - continue empiric AB's - follow D-dimer +/- further VTE testing - continue anxiolytics - tobacco abstinence counseled this admission - continue G.I. & VTE prophylaxis - continue other care per attending / other consultants .... re-evaluate in am & prn Subjective Date of service: 08/23/18 Principal diagnosis: Ac on Ch hypoxemic hypercapnic Resp failure; Respiratory Acidosis; AE-COPD Interval history: Patient is seen today for: Acute on chronic hypoxemic hypercapnic respiratory failure; Respiratory Acidosis; Acute chronic obstructive pulmonary disease exacerbation; Tobacco use disorder; Anxiety disorder; History of depression. Seen and examined at bedside; 24hour events reviewed; nursing and respiratory care staff consulted; no adverse overnight events reported to me; resting peacefully in bed; still SOB and with DIALLO; denies acute chest pains or palpitations Objective Vital Signs - 12hr 08/23/18 08/23/18 08/23/18 07:40 08:45 09:01 Temperature 97.7 F Pulse Rate Pulse Rate [ 107 H 109 H Anterior Bilateral Throughout] Pulse Rate [ 107 H 109 H Bilateral] Pulse Rate [ 109 H Posterior Bilateral Throughout] Respiratory 19 Rate Respiratory 18 16 Rate [Anterior Bilateral Throughout] Respiratory 18 16 Rate [Bilateral ] Respiratory 16 Rate [Posterior Bilateral Throughout] Blood Pressure 131/67 O2 Sat by Pulse 96 Oximetry 08/23/18 08/23/18 08/23/18 09:37 10:00 12:26 Temperature 98.3 F Pulse Rate 112 H 118 H Pulse Rate [ Anterior Bilateral Throughout] Pulse Rate [ Bilateral] Pulse Rate [ Posterior Bilateral Throughout] Respiratory 21 Rate Respiratory Rate [Anterior Bilateral Throughout] Respiratory Rate [Bilateral ] Respiratory Rate [Posterior Bilateral Throughout] Blood Pressure 132/69 O2 Sat by Pulse Oximetry 08/23/18 08/23/18 08/23/18 12:53 13:05 14:14 Temperature Pulse Rate 118 H Pulse Rate [ 107 H 110 H Anterior Bilateral Throughout] Pulse Rate [ 110 H Bilateral] Pulse Rate [ 107 H 110 H Posterior Bilateral Throughout] Respiratory 20 Rate Respiratory 18 20 Rate [Anterior Bilateral Throughout] Respiratory 20 Rate [Bilateral ] Respiratory 18 20 Rate [Posterior Bilateral Throughout] Blood Pressure 126/66 O2 Sat by Pulse 97 Oximetry 08/23/18 08/23/18 14:22 17:22 Temperature 98.1 F 98.6 F Pulse Rate 105 H Pulse Rate [ Anterior Bilateral Throughout] Pulse Rate [ Bilateral] Pulse Rate [ Posterior Bilateral Throughout] Respiratory 18 Rate Respiratory Rate [Anterior Bilateral Throughout] Respiratory Rate [Bilateral ] Respiratory Rate [Posterior Bilateral Throughout] Blood Pressure 152/91 O2 Sat by Pulse 100 Oximetry Constitutional: no acute distress, other (elderly thin CF, normocephalic and atraumatic with increased respiratory effort at rest) Eyes: non-icteric ENT: oropharynx moist, other (mallampati 2) Neck: supple, no lymphadenopathy, no JVD Effort: mildly labored Ascultation: Bilateral: diminished breath sounds, rhonchi Percussion: Bilateral: not dull Cardiovascular: regular rate and rhythm Gastrointestinal: normoactive bowel sounds, soft, non-tender, non-distended Integumentary: normal Extremities: no cyanosis, no edema, pink and warm, pulses normal, no ischemia or petechiae Neurologic: normal mental status, non-focal exam, pupils equal and round, CN II- XII normal, motor strength normal and Psychiatric: mood appropriate, anxious CBC and BMP: 08/22/18 05:44 08/22/18 05:44 ABG, PT/INR, D-dimer: ABG POC ABG pH 7.315 (7.35-7.45) L 08/23/18 18:21 POC ABG pCO2 66.8 (35-45) H 08/23/18 18:21 POC ABG pO2 103 (80-105) 08/23/18 18:21 POC ABG HCO3 34.0 08/23/18 18:21 POC ABG Total CO2 36 08/23/18 18:21 POC ABG O2 Sat 97 08/23/18 18:21 PT/INR, D-dimer PT 13.3 Sec. (12.2-14.9) 08/21/18 13:12 INR 0.95 (0.87-1.13) 08/21/18 13:12 D-Dimer 313.47 ng/mlDDU (0-234) H 08/23/18 16:52 Abnormal lab findings: Abnormal Labs 08/21/18 08/21/18 08/21/18 12:20 12:31 13:12 Hgb 14.5 H Hct 43.5 H RDW 12.8 L Lymph % (Auto) Lymph # Seg Neutrophils % Seg Neuts % (Manual) 98.0 H Lymphocytes % (Manual) 2.0 L Seg Neutrophils # Man 8.5 H Lymphocytes # (Manual) 0.2 L D-Dimer POC ABG pH 7.181 L POC ABG pCO2 96.0 H POC ABG pO2 195 H Sodium 131 L Chloride 88.6 L Carbon Dioxide 32 H BUN Creatinine 0.5 L Glucose 110 H Calcium CK-MB (CK-2) 8.0 H CK-MB (CK-2) Rel Index 7.0 H 08/21/18 08/22/18 08/22/18 15:50 05:44 05:44 Hgb Hct RDW 13.0 L Lymph % (Auto) 6.9 L Lymph # 0.3 L Seg Neutrophils % 89.3 H Seg Neuts % (Manual) Lymphocytes % (Manual) Seg Neutrophils # Man Lymphocytes # (Manual) D-Dimer POC ABG pH 7.217 L POC ABG pCO2 86.5 H POC ABG pO2 74 L Sodium 136 L Chloride 96.8 L Carbon Dioxide 31 H BUN 19 H Creatinine 0.4 L Glucose 168 H Calcium 8.2 L CK-MB (CK-2) CK-MB (CK-2) Rel Index 08/22/18 08/23/18 08/23/18 12:55 16:52 18:21 Hgb Hct RDW Lymph % (Auto) Lymph # Seg Neutrophils % Seg Neuts % (Manual) Lymphocytes % (Manual) Seg Neutrophils # Man Lymphocytes # (Manual) D-Dimer 313.47 H POC ABG pH 7.296 L 7.315 L POC ABG pCO2 74.0 H 66.8 H POC ABG pO2 Sodium Chloride Carbon Dioxide BUN Creatinine Glucose Calcium CK-MB (CK-2) CK-MB (CK-2) Rel Index Chest x-ray: image reviewed Allied health notes reviewed: nursing
--- NOTE | 2018-08-23 19:10 | Progress Note ---
Assessment and Plan Assessment and plan: --Acute exacerbation of COPD; bronchodilators, nebulizers Steroids and antibiotics and supportive care --Acute on chronic hypoxic respiratory failure; Secondary to COPD exacerbation Oxygen nebulizers and IV antibiotics and IV steroids and inhalation steroids, BiPAP as needed --History of depression/anxiety; Continue Xanax --History of hypertension; moderate control, continue current antihypertensives, When necessary medications --Peripheral neuropathy; stable on gabapentin --DVT prophylaxis; Lovenox Closely monitor the patient and adjust management as needed Tapering dose of steroids, possible discharge in 1-2 days if stable Follow-up pulmonary evaluation and recommendations History Interval history: Patient feels slightly better Mild cough and congestion Vital signs noted Hospitalist Physical - Constitutional Vitals: Temp Pulse Resp BP Pulse Ox 98.6 F 105 H 18 152/91 100 08/23/18 17:22 08/23/18 17:22 08/23/18 17:22 08/23/18 17:22 08/23/18 17:22 General appearance: Present: no acute distress, well-nourished - EENT Eyes: Present: PERRL, EOM intact - Neck Neck: Present: supple, normal ROM - Respiratory Respiratory effort: normal Respiratory: bilateral: diminished, wheezing, negative: rales, rhonchi - Cardiovascular Rhythm: regular Heart Sounds: Present: S1 & S2 - Extremities Extremities: no ischemia, No edema - Abdominal General gastrointestinal: soft, non-tender, non-distended, normal bowel sounds - Integumentary Integumentary: Present: clear, warm - Psychiatric Psychiatric: appropriate mood/affect, cooperative - Neurologic Neurologic: CNII-XII intact, moves all extremities Results - Labs CBC & Chem 7: 08/22/18 05:44 08/22/18 05:44 Labs: Laboratory Last Values WBC 4.6 K/mm3 (4.5-11.0) 08/22/18 05:44 RBC 4.09 M/mm3 (3.65-5.03) 08/22/18 05:44 Hgb 12.9 gm/dl (10.1-14.3) 08/22/18 05:44 Hct 38.9 % (30.3-42.9) 08/22/18 05:44 MCV 95 fl (79-97) 08/22/18 05:44 MCH 32 pg (28-32) 08/22/18 05:44 MCHC 33 % (30-34) 08/22/18 05:44 RDW 13.0 % (13.2-15.2) L 08/22/18 05:44 Plt Count 245 K/mm3 (140-440) 08/22/18 05:44 Lymph % (Auto) 6.9 % (13.4-35.0) L 08/22/18 05:44 [place] % (Auto) 3.3 % (0.0-7.3) 08/22/18 05:44 Eos % (Auto) 0.0 % (0.0-4.3) 08/22/18 05:44 Baso % (Auto) 0.5 % (0.0-1.8) 08/22/18 05:44 Lymph # 0.3 K/mm3 (1.2-5.4) L 08/22/18 05:44 [place] # 0.2 K/mm3 (0.0-0.8) 08/22/18 05:44 Eos # 0.0 K/mm3 (0.0-0.4) 08/22/18 05:44 Baso # 0.0 K/mm3 (0.0-0.1) 08/22/18 05:44 Add Manual Diff Complete 08/21/18 12:31 Total Counted 100 08/21/18 12:31 Seg Neutrophils % 89.3 % (40.0-70.0) H 08/22/18 05:44 Seg Neuts % (Manual) 98.0 % (40.0-70.0) H 08/21/18 12:31 Band Neutrophils % 0 % 08/21/18 12:31 Lymphocytes % (Manual) 2.0 % (13.4-35.0) L 08/21/18 12:31 Reactive Lymphs % (Man) 0 % 08/21/18 12:31 Monocytes % (Manual) 0 % (0.0-7.3) 08/21/18 12:31 Eosinophils % (Manual) 0 % (0.0-4.3) 08/21/18 12:31 Basophils % (Manual) 0 % (0.0-1.8) 08/21/18 12:31 Metamyelocytes % 0 % 08/21/18 12:31 Myelocytes % 0 % 08/21/18 12:31 Promyelocytes % 0 % 08/21/18 12:31 Blast Cells % 0 % 08/21/18 12:31 Nucleated RBC % Not Reportable 08/21/18 12:31 Seg Neutrophils # 4.1 K/mm3 (1.8-7.7) 08/22/18 05:44 Seg Neutrophils # Man 8.5 K/mm3 (1.8-7.7) H 08/21/18 12:31 Band Neutrophils # 0.0 K/mm3 08/21/18 12:31 Lymphocytes # (Manual) 0.2 K/mm3 (1.2-5.4) L 08/21/18 12:31 Abs React Lymphs (Man) 0.0 K/mm3 08/21/18 12:31 Monocytes # (Manual) 0.0 K/mm3 (0.0-0.8) 08/21/18 12:31 Eosinophils # (Manual) 0.0 K/mm3 (0.0-0.4) 08/21/18 12:31 Basophils # (Manual) 0.0 K/mm3 (0.0-0.1) 08/21/18 12:31 Metamyelocytes # 0.0 K/mm3 08/21/18 12:31 Myelocytes # 0.0 K/mm3 08/21/18 12:31 Promyelocytes # 0.0 K/mm3 08/21/18 12:31 Blast Cells # 0.0 K/mm3 08/21/18 12:31 WBC Morphology Not Reportable 08/21/18 12:31 Hypersegmented Neuts Not Reportable 08/21/18 12:31 Hyposegmented Neuts Not Reportable 08/21/18 12:31 Hypogranular Neuts Not Reportable 08/21/18 12:31 Smudge Cells Not Reportable 08/21/18 12:31 Toxic Granulation Not Reportable 08/21/18 12:31 Toxic Vacuolation Not Reportable 08/21/18 12:31 Dohle Bodies Not Reportable 08/21/18 12:31 Pelger-Huet Anomaly Not Reportable 08/21/18 12:31 Jory Rods Not Reportable 08/21/18 12:31 Platelet Estimate Consistent w auto 08/21/18 12:31 Clumped Platelets Not Reportable 08/21/18 12:31 Plt Clumps, EDTA Not Reportable 08/21/18 12:31 Large Platelets Not Reportable 08/21/18 12:31 Giant Platelets Not Reportable 08/21/18 12:31 Platelet Satelliting Not Reportable 08/21/18 12:31 Plt Morphology Comment Not Reportable 08/21/18 12:31 RBC Morphology Not Reportable 08/21/18 12:31 Dimorphic RBCs Not Reportable 08/21/18 12:31 Polychromasia Not Reportable 08/21/18 12:31 Hypochromasia Not Reportable 08/21/18 12:31 Poikilocytosis 1+ 08/21/18 12:31 Anisocytosis 1+ 08/21/18 12:31 Microcytosis Not Reportable 08/21/18 12:31 Macrocytosis Not Reportable 08/21/18 12:31 Spherocytes Not Reportable 08/21/18 12:31 Pappenheimer Bodies Not Reportable 08/21/18 12:31 Sickle Cells Not Reportable 08/21/18 12:31 Target Cells Not Reportable 08/21/18 12:31 Tear Drop Cells Not Reportable 08/21/18 12:31 Ovalocytes Not Reportable 08/21/18 12:31 Helmet Cells Not Reportable 08/21/18 12:31 [place] Bodies Not Reportable 08/21/18 12:31 [place] Rings Not Reportable 08/21/18 12:31 Beth Cells Not Reportable 08/21/18 12:31 Bite Cells Not Reportable 08/21/18 12:31 Crenated Cell Not Reportable 08/21/18 12:31 Elliptocytes Not Reportable 08/21/18 12:31 Acanthocytes (Spur) Not Reportable 08/21/18 12:31 Rouleaux Not Reportable 08/21/18 12:31 Hemoglobin C Crystals Not Reportable 08/21/18 12:31 Schistocytes Not Reportable 08/21/18 12:31 Malaria parasites Not Reportable 08/21/18 12:31 Eugenio Bodies Not Reportable 08/21/18 12:31 Hem Pathologist Commnt No 08/21/18 12:31 PT 13.3 Sec. (12.2-14.9) 08/21/18 13:12 INR 0.95 (0.87-1.13) 08/21/18 13:12 APTT 27.2 Sec. (24.2-36.6) 08/21/18 13:12 D-Dimer 313.47 ng/mlDDU (0-234) H 08/23/18 16:52 POC ABG pH 7.315 (7.35-7.45) L 08/23/18 18:21 POC ABG pCO2 66.8 (35-45) H 08/23/18 18:21 POC ABG pO2 103 (80-105) 08/23/18 18:21 POC ABG HCO3 34.0 08/23/18 18:21 POC ABG Total CO2 36 08/23/18 18:21 POC ABG O2 Sat 97 08/23/18 18:21 POC ABG Base Excess 8 08/23/18 18:21 FiO2 32 % 08/23/18 18:21 Sodium 136 mmol/L (137-145) L 08/22/18 05:44 Potassium 5.0 mmol/L (3.6-5.0) 08/22/18 05:44 Chloride 96.8 mmol/L (98-107) L 08/22/18 05:44 Carbon Dioxide 31 mmol/L (22-30) H 08/22/18 05:44 Anion Gap 13 mmol/L 08/22/18 05:44 BUN 19 mg/dL (7-17) H 08/22/18 05:44 Creatinine 0.4 mg/dL (0.7-1.2) L 08/22/18 05:44 Estimated GFR > 60 ml/min 08/22/18 05:44 BUN/Creatinine Ratio 48 % 08/22/18 05:44 Glucose 168 mg/dL (65-100) H 08/22/18 05:44 Hemoglobin A1c 5.4 % (4-6) 08/21/18 12:41 Calcium 8.2 mg/dL (8.4-10.2) L 08/22/18 05:44 Total Creatine Kinase 114 units/L (30-135) 08/21/18 13:12 CK-MB (CK-2) 8.0 ng/mL (0.0-4.0) H 08/21/18 13:12 CK-MB (CK-2) Rel Index 7.0 (0-4) H 08/21/18 13:12 Troponin T < 0.010 ng/mL (0.00-0.029) 08/21/18 13:12 NT-Pro-B Natriuret Pep 719.5 pg/mL (0-900) 08/21/18 13:12 Nutrition/Malnutrition Assess - Dietary Evaluation Nutrition/Malnutrition Findings: Nutrition Notes Start: 08/23/18 10:27 Freq: Status: Active Protocol: Document 08/23/18 10:27 ER (Rec: 08/23/18 10:42 ER [id number]) Co-Sign 08/23/18 10:27 LP Nutrition Notes Need for Assessment generated from: advanced manufacturing engineer MST Initial or Follow up Assessment Current Diagnosis COPD Hypertension Respiratory Failure Other Pertinent Diagnosis Fibromyalgia, anxiety/ depression Current Diet Regular Labs/Tests Na: 135 B BUN: 19 Cr: 0.4 Pertinent Medications Solu-Medrol Height 5 ft 5 in Weight 47.8 kg Usual Body Weight 48.6 kg [place] Body Weight (kg) 56.81 BMI 17.5 Intake Prior to Admission Fair Weight change and time frame Wt. obtained from [facility] (47 .8kg) Weight Status Underweight Subjective/Other Information RN screen for MST. Pt. visibly thin w/slight muscle and fat wasting in her arms and clavicle region. Pt. stated she typically eats a protein shake and banana in the morning and a sandwich with chips at lunch and dinner, but has had poor appetite d/t persistent coughing. Pt. feels that she does not need a lot of food and will sometimes not eat. Pt. stated she is eating about 50% of her meals and letting her eat some of the food. Pt. stated she drinks plenty of water and fluids. Pt. stated a UBW of 107#. Pt. current weight from [facility] was 47.8kg (105#). Piping Designer encouraged pt. to continue to consume meals. Pt. would like to try Ensure Enlive BID. Pt. denies having N/V/D/C or chewing/swallowing difficulties. Burn Absent Trauma Absent GI Symptoms None Food Allergy No Current % PO Fair (50-74%) Minimum of two criteria No #1 Nutrition Diagnosis Inadequate oral intake Etiology poor appetite As Evidenced by Signs and Symptoms pt. eating <50% of meals, low BMI Is patient on ventilator? No Is Patient Ambulatory and/or Out of Bed Yes REE-([place]. Jeor-ambulatory/OOB) [ 1363.544 NUTR.MSJOOB] Kcal/Kg value to use for calculation 36 Approximate Energy Requirements Using 1721 kcal/Kg Calculation Used for Recommendations Kcal/kg Additional Notes Protein needs: 58-72g (1.2-1. 5g/kg) Fluid needs: 1 mL/kcal Nutrition Intervention Change Diet Order: Continue Regular; add Ensure Enlive BID Add Supplement/Snack (indicate name/kcal Ensure Enlive BID /protein ) Provides kCal: 700 Provides Protein (gm) 40 Goal #1 Pt. to meet at least 75% of energy and protein needs through PO and ONS intakes Goal #2 Weight gain/maintenance Anticipated Discharge Needs: Regular Diet Follow-Up By: 08/25/18 Additional Comments F/U: PO and ONS intakes
[2018-08-23] MEDS: PULMICORT IH SCH (21:27)
[2018-08-23] MEDS: BROVANA NEBU IH SCH (21:27)
--- NOTE | 2018-08-23 23:00 | Consultation ---
CONSULTING PHYSICIAN: Dr. Marilee Carlin. REASON FOR CONSULTATION: Respiratory failure. CHIEF COMPLAINT AND HISTORY OF PRESENT ILLNESS: The patient is a 58-year-old female with past medical history significant amongst other things for a diagnosis of home oxygen-dependent chronic obstructive lung disease. She is on 2 liters nasal cannula at home, came in to the Emergency Room complaining of increasing shortness of breath. She complained of a productive cough for about 4 days. It was nonbloody, yellowish phlegm. She denied any fevers or chills. She complained of difficulty getting out of bed. She denied any sick contacts. She was seen in her primary care physician's office on the day of presentation where O2 sats were in the 80s. She was sent to the Emergency Room. In the Emergency Room, she was initially on 100% nonrebreather mask. Ultimately, she was evaluated and diagnosed with a COPD exacerbation and admitted to the medical floor. We are asked to assist with her management. When I stopped by to see her, she was actually sitting in bed, little bit in the tripod position, but without overt respiratory extremis. She admits to a 10+ pack year tobacco smoking history. She still smokes every now and then. Again, she denies sick contacts. She states she has been compliant with her medications, which include long-acting bronchodilator, she takes twice daily as well as albuterol nebulizer treatments. When asked about flu and pneumonia vaccination, she mentioned that she had been given those vaccinations in the past. She does have a harm reduction worker in the community, but she has seen the harm reduction worker, I believe only once and she does not remember the name. This really is as much of the history of presentation as I have. She denies any new onset leg pain or swelling, either unilaterally or bilaterally. PAST MEDICAL HISTORY: 1. Chronic obstructive lung disease, home oxygen dependent. 2. Tobacco use disorder. 3. History of anxiety/depression. 4. History of fibromyalgia. PAST SURGICAL HISTORY: She denies. MEDICATIONS: She was on at the time I stopped by to see were reviewed. Pertinent medications included the following: She is on Tylenol 650 mg p.o. q. 4 hours p.r.n. mild pain, p.r.n. albuterol treatments 2.5 mg nebulized q. 4 hours p.r.n. shortness of breath, DuoNeb treatments nebulized q.i.d., Xanax 1 mg p.o. b.i.d., Zithromax 500 mg p.o. daily, Rocephin 2 g IV daily, Flexeril 10 mg p.o. t.i.d. p.r.n. muscle spasms, Pepcid 10 mg p.o. b.i.d., Dilaudid 0.25 mg IV q. 3 hours p.r.n. moderate pain, Motrin 800 mg p.o. t.i.d. scheduled, Zestril 10 mg p.o. daily, Claritin 10 mg p.o. daily, Solu-Medrol 80 mg IV q. 8 hours, Zofran 4 mg IV q. 8 hours p.r.n. nausea and vomiting, Percocet 5/325 mg 1 tablet p.o. q. 6 hours p.r.n. moderate pain, Lyrica 25 mg p.o. t.i.d. as well as 75 mg p.o. t.i.d. scheduled for a total of 100 mg p.o. t.i.d. ALLERGIES: No known drug allergies. DIET: Thin lady. Denies significant weight loss or gain in the preceding few weeks to months. FAMILY AND SOCIAL HISTORY: Lives in the community, has a 10+ pack year tobacco smoking history. States she has quit daily smoking for the past year, but still smokes 2 or 3 times a week. Denies alcohol or illicit drug use or abuse. Family history, otherwise noncontributory. REVIEW OF SYSTEMS: No loss of consciousness. No new-onset seizures. No new-onset focal weakness. No gross hematochezia or melena. No gross hematuria. No hematemesis. No palpitations. No heat or cold intolerance. Denies polydipsia. Denies polyuria. Complete 13-system review of systems obtained. Pertinent positives and/or negatives as in body of history above, otherwise they are noncontributory. PHYSICAL EXAMINATION: VITAL SIGNS: At presentation in the Emergency Room, review of the vital signs show that the first temperature I have on her was 97.6 degrees Fahrenheit. At that time, pulse was 125, respiratory rate was 22, blood pressure was 118/69, oxygen sats were 96%, inspired oxygen concentration at the time was not recorded. When I stopped by to see her, her O2 sats were 97% that was on 3 liters nasal cannula. GENERAL: She is an elderly-looking female, normocephalic, atraumatic, talking to me in slightly interrupted sentences with mildly increased respiratory effort at rest. HEAD, EYES, EARS, NOSE AND THROAT: She is anicteric. No conjunctival erythema. Oropharynx is moist, is a Mallampati #2 oropharynx. No gross jugular venous distention. Grossly, no palpable lymph nodes in the supraclavicular or submandibular lymph node chains. LUNGS: Auscultation of both lung sandy, diminished bilateral breath sounds, prolonged expiratory phase. Occasional expiratory rhonchi, no wheezing. HEART: Heart sounds 1 and 2 are heard. They were regular in rate and rhythm at the time of my evaluation, without rubs or murmurs. ABDOMEN: Soft, flat. Bowel sounds are positive, nontender. No palpable hepatosplenomegaly. EXTREMITIES: Without overt digital clubbing or cyanosis. No pedal edema. Dorsalis pedis pulses are 2+ bilaterally. NEUROLOGIC: Pupils are equal, round, about 3 mm, reactive to light. Extraocular muscle movements are intact. She moves all 4 extremities spontaneously. The skin is of normal turgor without overt cellulitis or rash. LABORATORY DATA: From my review was as follows: White cell count 8700, hemoglobin 14.5, hematocrit 43.5, platelet count 302. No band forms reported. INR 0.95. ABG showed a pH of 7.22 at presentation with a pCO2 of 87 and a pO2 of 74 and that was on 35% FiO2. ABG after that showed a pH of 7.30 with a pCO2 of 74 and a pO2 of 84 that was on 2 liters nasal cannula. Serum sodium was 131 at presentation, potassium 4.9, chloride 89, bicarbonate 32, BUN 9, creatinine 0.5, and glucose 110. Troponin within normal limits. BNP within normal limits. Two sets of blood cultures were drawn, no growth to date. RADIOLOGICAL DATA: Chest x-ray was done. I have reviewed the chest x-ray as well as the radiologist's interpretation. Chest x-ray essentially shows hyperinflation with blunting of the costophrenic angle, possibly due to pleural thickening versus small bilateral pleural effusions and increased interstitial markings in a chronic-looking pattern. No overt cardiomegaly. The right upper lobe shows some scarring that may be a possible evidence of interstitial lung disease or fibrosis. No gross pneumothorax, no gross, no gross bony fractures. ASSESSMENT AND PLAN: 1. Acute on chronic hypoxemic respiratory failure with increased oxygen requirements. 2. Acute chronic obstructive pulmonary disease exacerbation. 3. Tobacco use disorder. 4. Anxiety disorder. 5. History of depression. 6. Mild hyponatremia. 7. Hypercapnic respiratory failure with respiratory acidosis. 8. Elevated serum glucose. PLAN: She certainly has advanced COPD. We agree with empiric antibiotic therapy. I will add long-acting bronchodilators as well as inhaled corticosteroids to the mix and begin a slow systemic steroid taper. Arterial blood gas should be repeated on the to see if she can self-correct her hypercapnia. If not, bilevel positive airway pressure ventilation therapy will be offered. I will get ____ venosus thromboembolic disease workup. I will go with D-dimers plus/minus bilateral lower extremity Dopplers. I have a rather low pretest probability for venous thromboembolic phenomenon. Sputum will be sent for Gram stain, cultures and sensitivities. Tobacco abstinence has been strongly counseled. I told her that smoking intermittently is not an option for her, especially with her degree of lung disease. She is appropriately on GI prophylaxis. I will be putting her on DVT prophylaxis. Flu and pneumonia vaccination will be addressed per protocol. Thank you very much for the consult. We will follow along and make further recommendations as picture progresses/becomes clearer. JOB# [id number] MARKELL/RAISA OSEI
[2018-08-24] MEDS: SOLU-Medrol IV SCH ×3 (05:57→21:33)
[2018-08-24] MEDS: IBUPROFEN PO SCH ×3 (08:00→17:35)
[2018-08-24] MEDS: LYRICA PO SCH ×6 (08:00→21:33)
[2018-08-24] MEDS: PULMICORT IH SCH ×2 (09:25→20:25)
[2018-08-24] MEDS: BROVANA NEBU IH SCH ×2 (09:25→20:25)
[2018-08-24] MEDS: DUONEB *Not for PRN Use IH SCH ×4 (09:33→20:25)
--- NOTE | 2018-08-24 09:34 | Progress Note ---
Assessment and Plan Assessment and plan: --Elevated d-dimer's; the setting of acute shortness of breath Check CT angiogram chest to rule out PE, lower extremity Doppler to rule out DVT --Acute exacerbation of COPD; bronchodilators, nebulizers Steroids and antibiotics and supportive care --Acute on chronic hypoxic respiratory failure; Secondary to COPD exacerbation Oxygen nebulizers and IV antibiotics and IV steroids and inhalation steroids, BiPAP as needed --History of depression/anxiety; Continue Xanax --History of hypertension; moderate control, continue current antihypertensives, When necessary medications --Peripheral neuropathy; stable on gabapentin --DVT prophylaxis; Lovenox Closely monitor the patient and adjust management as needed Tapering dose of steroids, possible discharge in 1-2 days if stable Follow-up pulmonary evaluation and recommendations History Interval history: Patient seen and examined medical records reviewed Continues to have mild shortness of breath and cough Significantly improved since admission Alert awake oriented 3 not in acute distress, vital signs reviewed Hospitalist Physical - Constitutional Vitals: Temp Pulse Resp BP Pulse Ox 98.6 F 110 H 17 152/91 96 08/23/18 17:22 08/24/18 09:28 08/24/18 09:28 08/23/18 17:22 08/24/18 09:27 General appearance: Present: no acute distress, cachectic, disheveled - EENT Eyes: Present: PERRL, EOM intact - Neck Neck: Present: supple, normal ROM - Respiratory Respiratory effort: normal Respiratory: bilateral: diminished, negative: rales, rhonchi, wheezing - Cardiovascular Rhythm: regular Heart Sounds: Present: S1 & S2 - Extremities Extremities: no ischemia, No edema - Abdominal General gastrointestinal: soft, non-tender, non-distended, normal bowel sounds - Integumentary Integumentary: Present: clear, warm - Psychiatric Psychiatric: appropriate mood/affect, cooperative - Neurologic Neurologic: CNII-XII intact, moves all extremities Results - Labs CBC & Chem 7: 08/22/18 05:44 08/22/18 05:44 Labs: Laboratory Last Values WBC 4.6 K/mm3 (4.5-11.0) 08/22/18 05:44 RBC 4.09 M/mm3 (3.65-5.03) 08/22/18 05:44 Hgb 12.9 gm/dl (10.1-14.3) 08/22/18 05:44 Hct 38.9 % (30.3-42.9) 08/22/18 05:44 MCV 95 fl (79-97) 08/22/18 05:44 MCH 32 pg (28-32) 08/22/18 05:44 MCHC 33 % (30-34) 08/22/18 05:44 RDW 13.0 % (13.2-15.2) L 08/22/18 05:44 Plt Count 245 K/mm3 (140-440) 08/22/18 05:44 Lymph % (Auto) 6.9 % (13.4-35.0) L 08/22/18 05:44 [place] % (Auto) 3.3 % (0.0-7.3) 08/22/18 05:44 Eos % (Auto) 0.0 % (0.0-4.3) 08/22/18 05:44 Baso % (Auto) 0.5 % (0.0-1.8) 08/22/18 05:44 Lymph # 0.3 K/mm3 (1.2-5.4) L 08/22/18 05:44 [place] # 0.2 K/mm3 (0.0-0.8) 08/22/18 05:44 Eos # 0.0 K/mm3 (0.0-0.4) 08/22/18 05:44 Baso # 0.0 K/mm3 (0.0-0.1) 08/22/18 05:44 Add Manual Diff Complete 08/21/18 12:31 Total Counted 100 08/21/18 12:31 Seg Neutrophils % 89.3 % (40.0-70.0) H 08/22/18 05:44 Seg Neuts % (Manual) 98.0 % (40.0-70.0) H 08/21/18 12:31 Band Neutrophils % 0 % 08/21/18 12:31 Lymphocytes % (Manual) 2.0 % (13.4-35.0) L 08/21/18 12:31 Reactive Lymphs % (Man) 0 % 08/21/18 12:31 Monocytes % (Manual) 0 % (0.0-7.3) 08/21/18 12:31 Eosinophils % (Manual) 0 % (0.0-4.3) 08/21/18 12:31 Basophils % (Manual) 0 % (0.0-1.8) 08/21/18 12:31 Metamyelocytes % 0 % 08/21/18 12:31 Myelocytes % 0 % 08/21/18 12:31 Promyelocytes % 0 % 08/21/18 12:31 Blast Cells % 0 % 08/21/18 12:31 Nucleated RBC % Not Reportable 08/21/18 12:31 Seg Neutrophils # 4.1 K/mm3 (1.8-7.7) 08/22/18 05:44 Seg Neutrophils # Man 8.5 K/mm3 (1.8-7.7) H 08/21/18 12:31 Band Neutrophils # 0.0 K/mm3 08/21/18 12:31 Lymphocytes # (Manual) 0.2 K/mm3 (1.2-5.4) L 08/21/18 12:31 Abs React Lymphs (Man) 0.0 K/mm3 08/21/18 12:31 Monocytes # (Manual) 0.0 K/mm3 (0.0-0.8) 08/21/18 12:31 Eosinophils # (Manual) 0.0 K/mm3 (0.0-0.4) 08/21/18 12:31 Basophils # (Manual) 0.0 K/mm3 (0.0-0.1) 08/21/18 12:31 Metamyelocytes # 0.0 K/mm3 08/21/18 12:31 Myelocytes # 0.0 K/mm3 08/21/18 12:31 Promyelocytes # 0.0 K/mm3 08/21/18 12:31 Blast Cells # 0.0 K/mm3 08/21/18 12:31 WBC Morphology Not Reportable 08/21/18 12:31 Hypersegmented Neuts Not Reportable 08/21/18 12:31 Hyposegmented Neuts Not Reportable 08/21/18 12:31 Hypogranular Neuts Not Reportable 08/21/18 12:31 Smudge Cells Not Reportable 08/21/18 12:31 Toxic Granulation Not Reportable 08/21/18 12:31 Toxic Vacuolation Not Reportable 08/21/18 12:31 Dohle Bodies Not Reportable 08/21/18 12:31 Pelger-Huet Anomaly Not Reportable 08/21/18 12:31 Jory Rods Not Reportable 08/21/18 12:31 Platelet Estimate Consistent w auto 08/21/18 12:31 Clumped Platelets Not Reportable 08/21/18 12:31 Plt Clumps, EDTA Not Reportable 08/21/18 12:31 Large Platelets Not Reportable 08/21/18 12:31 Giant Platelets Not Reportable 08/21/18 12:31 Platelet Satelliting Not Reportable 08/21/18 12:31 Plt Morphology Comment Not Reportable 08/21/18 12:31 RBC Morphology Not Reportable 08/21/18 12:31 Dimorphic RBCs Not Reportable 08/21/18 12:31 Polychromasia Not Reportable 08/21/18 12:31 Hypochromasia Not Reportable 08/21/18 12:31 Poikilocytosis 1+ 08/21/18 12:31 Anisocytosis 1+ 08/21/18 12:31 Microcytosis Not Reportable 08/21/18 12:31 Macrocytosis Not Reportable 08/21/18 12:31 Spherocytes Not Reportable 08/21/18 12:31 Pappenheimer Bodies Not Reportable 08/21/18 12:31 Sickle Cells Not Reportable 08/21/18 12:31 Target Cells Not Reportable 08/21/18 12:31 Tear Drop Cells Not Reportable 08/21/18 12:31 Ovalocytes Not Reportable 08/21/18 12:31 Helmet Cells Not Reportable 08/21/18 12:31 Peterson-Temelec Bodies Not Reportable 08/21/18 12:31 [place]ly Rings Not Reportable 08/21/18 12:31 Beth Cells Not Reportable 08/21/18 12:31 Bite Cells Not Reportable 08/21/18 12:31 Crenated Cell Not Reportable 08/21/18 12:31 Elliptocytes Not Reportable 08/21/18 12:31 Acanthocytes (Spur) Not Reportable 08/21/18 12:31 Rouleaux Not Reportable 08/21/18 12:31 Hemoglobin C Crystals Not Reportable 08/21/18 12:31 Schistocytes Not Reportable 08/21/18 12:31 Malaria parasites Not Reportable 08/21/18 12:31 Eugenio Bodies Not Reportable 08/21/18 12:31 Hem Pathologist Commnt No 08/21/18 12:31 PT 13.3 Sec. (12.2-14.9) 08/21/18 13:12 INR 0.95 (0.87-1.13) 08/21/18 13:12 APTT 27.2 Sec. (24.2-36.6) 08/21/18 13:12 D-Dimer 313.47 ng/mlDDU (0-234) H 08/23/18 16:52 POC ABG pH 7.315 (7.35-7.45) L 08/23/18 18:21 POC ABG pCO2 66.8 (35-45) H 08/23/18 18:21 POC ABG pO2 103 (80-105) 08/23/18 18:21 POC ABG HCO3 34.0 08/23/18 18:21 POC ABG Total CO2 36 08/23/18 18:21 POC ABG O2 Sat 97 08/23/18 18:21 POC ABG Base Excess 8 08/23/18 18:21 FiO2 32 % 08/23/18 18:21 Sodium 136 mmol/L (137-145) L 08/22/18 05:44 Potassium 5.0 mmol/L (3.6-5.0) 08/22/18 05:44 Chloride 96.8 mmol/L (98-107) L 08/22/18 05:44 Carbon Dioxide 31 mmol/L (22-30) H 08/22/18 05:44 Anion Gap 13 mmol/L 08/22/18 05:44 BUN 19 mg/dL (7-17) H 08/22/18 05:44 Creatinine 0.4 mg/dL (0.7-1.2) L 08/22/18 05:44 Estimated GFR > 60 ml/min 08/22/18 05:44 BUN/Creatinine Ratio 48 % 08/22/18 05:44 Glucose 168 mg/dL (65-100) H 08/22/18 05:44 Hemoglobin A1c 5.4 % (4-6) 08/21/18 12:41 Calcium 8.2 mg/dL (8.4-10.2) L 08/22/18 05:44 Total Creatine Kinase 114 units/L (30-135) 08/21/18 13:12 CK-MB (CK-2) 8.0 ng/mL (0.0-4.0) H 08/21/18 13:12 CK-MB (CK-2) Rel Index 7.0 (0-4) H 08/21/18 13:12 Troponin T < 0.010 ng/mL (0.00-0.029) 08/21/18 13:12 NT-Pro-B Natriuret Pep 719.5 pg/mL (0-900) 08/21/18 13:12 Nutrition/Malnutrition Assess - Dietary Evaluation Nutrition/Malnutrition Findings: Nutrition Notes Start: 08/23/18 10:27 Freq: Status: Active Protocol: Document 08/23/18 10:27 ER (Rec: 08/23/18 10:42 ER [id number]) Co-Sign 08/23/18 10:27 LP Nutrition Notes Need for Assessment generated from: marketing support manager MST Initial or Follow up Assessment Current Diagnosis COPD Hypertension Respiratory Failure Other Pertinent Diagnosis Fibromyalgia, anxiety/ depression Current Diet Regular Labs/Tests Na: 135 B BUN: 19 Cr: 0.4 Pertinent Medications Solu-Medrol Height 5 ft 5 in Weight 47.8 kg Usual Body Weight 48.6 kg [place] Body Weight (kg) 56.81 BMI 17.5 Intake Prior to Admission Fair Weight change and time frame Wt. obtained from [facility] (47 .8kg) Weight Status Underweight Subjective/Other Information RN screen for MST. Pt. visibly thin w/slight muscle and fat wasting in her arms and clavicle region. Pt. stated she typically eats a protein shake and banana in the morning and a sandwich with chips at lunch and dinner, but has had poor appetite d/t persistent coughing. Pt. feels that she does not need a lot of food and will sometimes not eat. Pt. stated she is eating about 50% of her meals and letting her eat some of the food. Pt. stated she drinks plenty of water and fluids. Pt. stated a UBW of 107#. Pt. current weight from [facility] was 47.8kg (105#). Pull Tab Dealer encouraged pt. to continue to consume meals. Pt. would like to try Ensure Enlive BID. Pt. denies having N/V/D/C or chewing/swallowing difficulties. Burn Absent Trauma Absent GI Symptoms None Food Allergy No Current % PO Fair (50-74%) Minimum of two criteria No #1 Nutrition Diagnosis Inadequate oral intake Etiology poor appetite As Evidenced by Signs and Symptoms pt. eating <50% of meals, low BMI Is patient on ventilator? No Is Patient Ambulatory and/or Out of Bed Yes REE-([facility]-ambulatory/OOB) [ 1363.544 NUTR.[id number]] Kcal/Kg value to use for calculation 36 Approximate Energy Requirements Using 1721 kcal/Kg Calculation Used for Recommendations Kcal/kg Additional Notes Protein needs: 58-72g (1.2-1. 5g/kg) Fluid needs: 1 mL/kcal Nutrition Intervention Change Diet Order: Continue Regular; add Ensure Enlive BID Add Supplement/Snack (indicate name/kcal Ensure Enlive BID /protein ) Provides kCal: 700 Provides Protein (gm) 40 Goal #1 Pt. to meet at least 75% of energy and protein needs through PO and ONS intakes Goal #2 Weight gain/maintenance Anticipated Discharge Needs: Regular Diet Follow-Up By: 08/25/18 Additional Comments F/U: PO and ONS intakes
[2018-08-24] MEDS: ROCEPHIN/NS 2 GM/100 ML 2 GM/100 ML BAG IV SCH (09:50)
[2018-08-24] MEDS: CLARITIN PO SCH (09:51)
[2018-08-24] MEDS: ZESTRIL PO SCH (09:52)
[2018-08-24] MEDS: ZITHROMAX PO SCH (09:52)
[2018-08-24] MEDS: XANAX PO SCH ×2 (09:52→21:34)
[2018-08-24] MEDS: LOVENOX SUB-Q SCH (09:53)
[2018-08-24] MEDS: PEPCID PO SCH ×2 (09:53→21:33)
[2018-08-24] MEDS: SODIUM CHLORIDE FLUSH SYRINGE 10 ML IV SCH ×2 (09:54→21:34)
--- NOTE | 2018-08-24 15:00 | Progress Note ---
Assessment and Plan Acute on chronic hypoxemic hypercapnic respiratory failure. Respiratory Acidosis Acute chronic obstructive pulmonary disease exacerbation. Tobacco use disorder. Anxiety disorder. History of depression. Mild hyponatremia. Elevated serum glucose. - follow CT chest - continue supplemental but restrictive oxygen therapy to keep sats approximately 88-92% acutely - continue bronchodilators (VIDA & LABA) with pulmonary hygiene per RT - continue systemic steroids with a slow taper - continue empiric AB's - continue anxiolytics - tobacco abstinence counseled this admission - continue G.I. & VTE prophylaxis - continue other care per attending / other consultants .... re-evaluate in am & prn Subjective Date of service: 08/24/18 Principal diagnosis: Ac on Ch hypoxemic hypercapnic Resp failure; Respiratory Acidosis; AE-COPD Interval history: Patient is seen today for: Acute on chronic hypoxemic hypercapnic respiratory failure; Respiratory Acidosis; Acute chronic obstructive pulmonary disease exacerbation; Tobacco use disorder; Anxiety disorder; History of depression. Seen and examined at bedside; 24hour events reviewed; nursing and respiratory care staff consulted; no adverse overnight events reported to me; resting peace fully in bed; to go for CTA of chest shortly; looks and feels better; No N/V/F/C Objective Vital Signs - 12hr 08/24/18 08/24/18 08/24/18 09:27 09:28 09:38 Temperature Pulse Rate Pulse Rate [ Anterior Bilateral Throughout] Pulse Rate [ 110 H 116 H Posterior Bilateral Throughout] Respiratory Rate Respiratory Rate [Anterior Bilateral Throughout] Respiratory 17 16 Rate [Posterior Bilateral Throughout] Blood Pressure O2 Sat by Pulse 96 Oximetry 08/24/18 08/24/18 08/24/18 12:05 12:15 12:47 Temperature 98.2 F Pulse Rate 117 H Pulse Rate [ 117 H 119 H Anterior Bilateral Throughout] Pulse Rate [ Posterior Bilateral Throughout] Respiratory 20 Rate Respiratory 20 18 Rate [Anterior Bilateral Throughout] Respiratory Rate [Posterior Bilateral Throughout] Blood Pressure 151/79 O2 Sat by Pulse 95 Oximetry Constitutional: no acute distress, other (elderly thin CF, normocephalic and atraumatic with increased respiratory effort at rest) Eyes: non-icteric ENT: oropharynx moist, other (mallampati 2) Neck: supple, no lymphadenopathy, no JVD Effort: normal Ascultation: Bilateral: diminished breath sounds, rhonchi Percussion: Bilateral: not dull Cardiovascular: regular rate and rhythm Gastrointestinal: normoactive bowel sounds, soft, non-tender, non-distended Integumentary: normal Extremities: no cyanosis, no edema, pink and warm, pulses normal, no ischemia or petechiae Neurologic: normal mental status, non-focal exam, pupils equal and round, CN II- XII normal, motor strength normal and Psychiatric: mood appropriate, anxious CBC and BMP: 08/22/18 05:44 08/22/18 05:44 ABG, PT/INR, D-dimer: ABG POC ABG pH 7.315 (7.35-7.45) L 08/23/18 18:21 POC ABG pCO2 66.8 (35-45) H 08/23/18 18:21 POC ABG pO2 103 (80-105) 08/23/18 18:21 POC ABG HCO3 34.0 08/23/18 18:21 POC ABG Total CO2 36 08/23/18 18:21 POC ABG O2 Sat 97 08/23/18 18:21 PT/INR, D-dimer PT 13.3 Sec. (12.2-14.9) 08/21/18 13:12 INR 0.95 (0.87-1.13) 08/21/18 13:12 D-Dimer 313.47 ng/mlDDU (0-234) H 08/23/18 16:52 Abnormal lab findings: Abnormal Labs 08/21/18 08/21/18 08/21/18 12:20 12:31 13:12 Hgb 14.5 H Hct 43.5 H RDW 12.8 L Lymph % (Auto) Lymph # Seg Neutrophils % Seg Neuts % (Manual) 98.0 H Lymphocytes % (Manual) 2.0 L Seg Neutrophils # Man 8.5 H Lymphocytes # (Manual) 0.2 L D-Dimer POC ABG pH 7.181 L POC ABG pCO2 96.0 H POC ABG pO2 195 H Sodium 131 L Chloride 88.6 L Carbon Dioxide 32 H BUN Creatinine 0.5 L Glucose 110 H Calcium CK-MB (CK-2) 8.0 H CK-MB (CK-2) Rel Index 7.0 H 08/21/18 08/22/18 08/22/18 15:50 05:44 05:44 Hgb Hct RDW 13.0 L Lymph % (Auto) 6.9 L Lymph # 0.3 L Seg Neutrophils % 89.3 H Seg Neuts % (Manual) Lymphocytes % (Manual) Seg Neutrophils # Man Lymphocytes # (Manual) D-Dimer POC ABG pH 7.217 L POC ABG pCO2 86.5 H POC ABG pO2 74 L Sodium 136 L Chloride 96.8 L Carbon Dioxide 31 H BUN 19 H Creatinine 0.4 L Glucose 168 H Calcium 8.2 L CK-MB (CK-2) CK-MB (CK-2) Rel Index 08/22/18 08/23/18 08/23/18 12:55 16:52 18:21 Hgb Hct RDW Lymph % (Auto) Lymph # Seg Neutrophils % Seg Neuts % (Manual) Lymphocytes % (Manual) Seg Neutrophils # Man Lymphocytes # (Manual) D-Dimer 313.47 H POC ABG pH 7.296 L 7.315 L POC ABG pCO2 74.0 H 66.8 H POC ABG pO2 Sodium Chloride Carbon Dioxide BUN Creatinine Glucose Calcium CK-MB (CK-2) CK-MB (CK-2) Rel Index Allied health notes reviewed: nursing
--- NOTE | 2018-08-24 16:46 | Cat Scan Report ---
FINAL REPORT PROCEDURE: CT angiogram chest with contrast. TECHNIQUE: Computerized tomographic angiography of the chest was performed after the IV injection of iodinated nonionic contrast including image processing. The image data was postprocessed using 2-dim ensional multiplanar reformatted (MPR) and 3-dimensional (MIP and/or volume rendered) techniques. HISTORY: Shortness of breath, elevated D-dimer, rule out pulmonary embolism. COMPARISON: No prior studies are available for comparison. FINDINGS: The trachea and central bronchi appear normal. There is a narrow wedge-shaped band of opacity located posteriorly in the right upper lobe. This extends from the hilum to the upper pleural surface. There are some bronchi visible within this opacity that are slightly dilated. This likely represents an ar ea of bronchiectasis with surrounding chronic fibrosis. A mass lesion is considered unlikely. The gladys gs are otherwise grossly clear. Both lungs are hyperinflated consistent with COPD. There are no pleur al effusions. The thoracic aorta has a normal caliber without evidence of dissection. The pulmonary a rteries enhance normally. There are no signs of pulmonary embolism. There is no mediastinal adenopath y. The heart size is normal. The adrenal glands are not enlarged. The thoracic skeleton appears intac t. IMPRESSION: No evidence of pulmonary embolism. Abnormal opacity in the right upper lobe as discussed above. COPD.
[2018-08-25] MEDS: SOLU-Medrol IV SCH ×3 (05:05→23:31)
[2018-08-25] MEDS: IBUPROFEN PO SCH ×3 (08:00→17:15)
[2018-08-25] MEDS: LYRICA PO SCH ×6 (08:00→19:38)
[2018-08-25] MEDS: DUONEB *Not for PRN Use IH SCH ×4 (08:45→20:41)
[2018-08-25] MEDS: BROVANA NEBU IH SCH ×3 (08:45→20:20)
[2018-08-25] MEDS: PULMICORT IH SCH ×3 (08:45→20:20)
[2018-08-25] MEDS: ROCEPHIN/NS 2 GM/100 ML 2 GM/100 ML BAG IV SCH (10:06)
[2018-08-25] MEDS: SODIUM CHLORIDE FLUSH SYRINGE 10 ML IV SCH ×2 (10:06→23:32)
[2018-08-25] MEDS: LOVENOX SUB-Q SCH (10:07)
[2018-08-25] MEDS: ZESTRIL PO SCH (10:09)
[2018-08-25] MEDS: PEPCID PO SCH ×2 (10:09→23:32)
[2018-08-25] MEDS: XANAX PO SCH ×2 (10:09→23:32)
[2018-08-25] MEDS: ZITHROMAX PO SCH (10:11)
[2018-08-25] MEDS: CLARITIN PO SCH (10:12)
--- NOTE | 2018-08-25 10:19 | Progress Note ---
Assessment and Plan Assessment and plan: --Acute exacerbation of COPD; bronchodilators, nebulizers Steroids and antibiotics and supportive care --Acute on chronic hypoxic respiratory failure; Secondary to COPD exacerbation Oxygen nebulizers and IV antibiotics and IV steroids and inhalation steroids, BiPAP as needed --Right upper lobe opacity on CT chest; Continue current management, pulmonary following --Elevated d-dimer ; negative for PE, negative during the --History of depression/anxiety; stable on medications --History of hypertension; moderate control, continue current antihypertensives, When necessary medications --Peripheral neuropathy; stable on gabapentin --DVT prophylaxis; Lovenox Closely monitor the patient and adjust management as needed Tapering dose of steroids, possible discharge in 1-2 days if stable Follow-up pulmonary evaluation and recommendations History Interval history: Patient seen and examined medical records reviewed Patient continues to have mild shortness of breath significantly improved since admission Complains of some cough Alert awake oriented vital signs reviewed Hospitalist Physical - Constitutional Vitals: Temp Pulse Resp BP Pulse Ox 97.8 F 110 H 20 156/91 95 08/25/18 04:57 08/25/18 09:44 08/25/18 09:44 08/25/18 04:57 08/25/18 09:24 General appearance: Present: no acute distress, cachectic, disheveled - EENT Eyes: Present: PERRL, EOM intact - Neck Neck: Present: supple, normal ROM - Respiratory Respiratory effort: normal Respiratory: bilateral: diminished, wheezing, negative: rales, rhonchi - Cardiovascular Rhythm: regular Heart Sounds: Present: S1 & S2 - Extremities Extremities: no ischemia, No edema - Abdominal General gastrointestinal: soft, non-tender, non-distended, normal bowel sounds - Integumentary Integumentary: Present: clear, warm - Psychiatric Psychiatric: appropriate mood/affect, cooperative - Neurologic Neurologic: CNII-XII intact, moves all extremities Results - Labs CBC & Chem 7: 08/22/18 05:44 08/22/18 05:44 Labs: Laboratory Last Values WBC 4.6 K/mm3 (4.5-11.0) 08/22/18 05:44 RBC 4.09 M/mm3 (3.65-5.03) 08/22/18 05:44 Hgb 12.9 gm/dl (10.1-14.3) 08/22/18 05:44 Hct 38.9 % (30.3-42.9) 08/22/18 05:44 MCV 95 fl (79-97) 08/22/18 05:44 MCH 32 pg (28-32) 08/22/18 05:44 MCHC 33 % (30-34) 08/22/18 05:44 RDW 13.0 % (13.2-15.2) L 08/22/18 05:44 Plt Count 245 K/mm3 (140-440) 08/22/18 05:44 Lymph % (Auto) 6.9 % (13.4-35.0) L 08/22/18 05:44 [place] % (Auto) 3.3 % (0.0-7.3) 08/22/18 05:44 Eos % (Auto) 0.0 % (0.0-4.3) 08/22/18 05:44 Baso % (Auto) 0.5 % (0.0-1.8) 08/22/18 05:44 Lymph # 0.3 K/mm3 (1.2-5.4) L 08/22/18 05:44 [place] # 0.2 K/mm3 (0.0-0.8) 08/22/18 05:44 Eos # 0.0 K/mm3 (0.0-0.4) 08/22/18 05:44 Baso # 0.0 K/mm3 (0.0-0.1) 08/22/18 05:44 Add Manual Diff Complete 08/21/18 12:31 Total Counted 100 08/21/18 12:31 Seg Neutrophils % 89.3 % (40.0-70.0) H 08/22/18 05:44 Seg Neuts % (Manual) 98.0 % (40.0-70.0) H 08/21/18 12:31 Band Neutrophils % 0 % 08/21/18 12:31 Lymphocytes % (Manual) 2.0 % (13.4-35.0) L 08/21/18 12:31 Reactive Lymphs % (Man) 0 % 08/21/18 12:31 Monocytes % (Manual) 0 % (0.0-7.3) 08/21/18 12:31 Eosinophils % (Manual) 0 % (0.0-4.3) 08/21/18 12:31 Basophils % (Manual) 0 % (0.0-1.8) 08/21/18 12:31 Metamyelocytes % 0 % 08/21/18 12:31 Myelocytes % 0 % 08/21/18 12:31 Promyelocytes % 0 % 08/21/18 12:31 Blast Cells % 0 % 08/21/18 12:31 Nucleated RBC % Not Reportable 08/21/18 12:31 Seg Neutrophils # 4.1 K/mm3 (1.8-7.7) 08/22/18 05:44 Seg Neutrophils # Man 8.5 K/mm3 (1.8-7.7) H 08/21/18 12:31 Band Neutrophils # 0.0 K/mm3 08/21/18 12:31 Lymphocytes # (Manual) 0.2 K/mm3 (1.2-5.4) L 08/21/18 12:31 Abs React Lymphs (Man) 0.0 K/mm3 08/21/18 12:31 Monocytes # (Manual) 0.0 K/mm3 (0.0-0.8) 08/21/18 12:31 Eosinophils # (Manual) 0.0 K/mm3 (0.0-0.4) 08/21/18 12:31 Basophils # (Manual) 0.0 K/mm3 (0.0-0.1) 08/21/18 12:31 Metamyelocytes # 0.0 K/mm3 08/21/18 12:31 Myelocytes # 0.0 K/mm3 08/21/18 12:31 Promyelocytes # 0.0 K/mm3 08/21/18 12:31 Blast Cells # 0.0 K/mm3 08/21/18 12:31 WBC Morphology Not Reportable 08/21/18 12:31 Hypersegmented Neuts Not Reportable 08/21/18 12:31 Hyposegmented Neuts Not Reportable 08/21/18 12:31 Hypogranular Neuts Not Reportable 08/21/18 12:31 Smudge Cells Not Reportable 08/21/18 12:31 Toxic Granulation Not Reportable 08/21/18 12:31 Toxic Vacuolation Not Reportable 08/21/18 12:31 Dohle Bodies Not Reportable 08/21/18 12:31 Pelger-Huet Anomaly Not Reportable 08/21/18 12:31 Jory Rods Not Reportable 08/21/18 12:31 Platelet Estimate Consistent w auto 08/21/18 12:31 Clumped Platelets Not Reportable 08/21/18 12:31 Plt Clumps, EDTA Not Reportable 08/21/18 12:31 Large Platelets Not Reportable 08/21/18 12:31 Giant Platelets Not Reportable 08/21/18 12:31 Platelet Satelliting Not Reportable 08/21/18 12:31 Plt Morphology Comment Not Reportable 08/21/18 12:31 RBC Morphology Not Reportable 08/21/18 12:31 Dimorphic RBCs Not Reportable 08/21/18 12:31 Polychromasia Not Reportable 08/21/18 12:31 Hypochromasia Not Reportable 08/21/18 12:31 Poikilocytosis 1+ 08/21/18 12:31 Anisocytosis 1+ 08/21/18 12:31 Microcytosis Not Reportable 08/21/18 12:31 Macrocytosis Not Reportable 08/21/18 12:31 Spherocytes Not Reportable 08/21/18 12:31 Pappenheimer Bodies Not Reportable 08/21/18 12:31 Sickle Cells Not Reportable 08/21/18 12:31 Target Cells Not Reportable 08/21/18 12:31 Tear Drop Cells Not Reportable 08/21/18 12:31 Ovalocytes Not Reportable 08/21/18 12:31 Helmet Cells Not Reportable 08/21/18 12:31 [place] Bodies Not Reportable 08/21/18 12:31 [place] Rings Not Reportable 08/21/18 12:31 [place] Cells Not Reportable 08/21/18 12:31 Bite Cells Not Reportable 08/21/18 12:31 Crenated Cell Not Reportable 08/21/18 12:31 Elliptocytes Not Reportable 08/21/18 12:31 Acanthocytes (Spur) Not Reportable 08/21/18 12:31 Rouleaux Not Reportable 08/21/18 12:31 Hemoglobin C Crystals Not Reportable 08/21/18 12:31 Schistocytes Not Reportable 08/21/18 12:31 Malaria parasites Not Reportable 08/21/18 12:31 Eugenio Bodies Not Reportable 08/21/18 12:31 Hem Pathologist Commnt No 08/21/18 12:31 PT 13.3 Sec. (12.2-14.9) 08/21/18 13:12 INR 0.95 (0.87-1.13) 08/21/18 13:12 APTT 27.2 Sec. (24.2-36.6) 08/21/18 13:12 D-Dimer 313.47 ng/mlDDU (0-234) H 08/23/18 16:52 POC ABG pH 7.315 (7.35-7.45) L 08/23/18 18:21 POC ABG pCO2 66.8 (35-45) H 08/23/18 18:21 POC ABG pO2 103 (80-105) 08/23/18 18:21 POC ABG HCO3 34.0 08/23/18 18:21 POC ABG Total CO2 36 08/23/18 18:21 POC ABG O2 Sat 97 08/23/18 18:21 POC ABG Base Excess 8 08/23/18 18:21 FiO2 32 % 08/23/18 18:21 Sodium 136 mmol/L (137-145) L 08/22/18 05:44 Potassium 5.0 mmol/L (3.6-5.0) 08/22/18 05:44 Chloride 96.8 mmol/L (98-107) L 08/22/18 05:44 Carbon Dioxide 31 mmol/L (22-30) H 08/22/18 05:44 Anion Gap 13 mmol/L 08/22/18 05:44 BUN 19 mg/dL (7-17) H 08/22/18 05:44 Creatinine 0.4 mg/dL (0.7-1.2) L 08/22/18 05:44 Estimated GFR > 60 ml/min 08/22/18 05:44 BUN/Creatinine Ratio 48 % 08/22/18 05:44 Glucose 168 mg/dL (65-100) H 08/22/18 05:44 Hemoglobin A1c 5.4 % (4-6) 08/21/18 12:41 Calcium 8.2 mg/dL (8.4-10.2) L 08/22/18 05:44 Total Creatine Kinase 114 units/L (30-135) 08/21/18 13:12 CK-MB (CK-2) 8.0 ng/mL (0.0-4.0) H 08/21/18 13:12 CK-MB (CK-2) Rel Index 7.0 (0-4) H 08/21/18 13:12 Troponin T < 0.010 ng/mL (0.00-0.029) 08/21/18 13:12 NT-Pro-B Natriuret Pep 719.5 pg/mL (0-900) 08/21/18 13:12 Nutrition/Malnutrition Assess - Dietary Evaluation Nutrition/Malnutrition Findings: Nutrition Notes Start: 08/23/18 10:27 Freq: Status: Active Protocol: Document 08/24/18 11:06 (Rec: 08/24/18 11:37 [email or web address]) Co-Sign 08/24/18 11:06 Nutrition Notes Initial or Follow up Brief Note Current Diagnosis COPD Hypertension Respiratory Failure Other Pertinent Diagnosis Fibromyalgia, anxiety/ depression Current Diet Regular with Ensure Enlive BID Subjective/Other Information Pt seen for low BMI. Observed pt. tray with 100% of food missing. Pt. stated she has not been recieving Ensure Enlive on her trays, so machine learning intern brought one to her room. Pt. stated she was experiencing nausea yesterday and the day before, but was feeling better today. Nutrition Intervention Follow-Up By: 08/28/18 Additional Comments F/u for PO and ONS intakes
[2018-08-25] MEDS ORDERED: SOLU-Medrol IV SCH (10:20)
--- NOTE | 2018-08-25 13:56 | Vascular Lab Report ---
FINAL REPORT EXAM: VL VENOUS DUPLEX LE BILAT HISTORY: elevated d dimer/ evaluate for DVT, leg pain and peripheral neuropathy TECHNIQUE: Ultrasound examination of the right lower extremity venous system Ultrasound examination of the left lower extremity venous system PRIORS: None. FINDINGS: Right leg: Normal compressibility, vascular patency, and augmentation are present diffusely throughout the visua lized portion of the deep veins of the right leg. No abnormal intraluminal echoes are visualized to suggest thrombus. Left leg: Normal compressibility, vascular patency, and augmentation are present diffusely throughout the visua lized portion of the deep veins of the left leg. No abnormal intraluminal echoes are visualized to s uggest thrombus. IMPRESSION: No sonographic evidence of DVT in the right leg No sonographic evidence of DVT in the left leg
--- NOTE | 2018-08-25 14:26 | Progress Note ---
Assessment and Plan Acute on chronic hypoxemic hypercapnic respiratory failure. Respiratory Acidosis Acute chronic obstructive pulmonary disease exacerbation. Tobacco use disorder. Anxiety disorder. History of depression. Mild hyponatremia. Elevated serum glucose. - continue supplemental but restrictive oxygen therapy to keep sats approximate ly 88-92% acutely - continue bronchodilators (VIDA & LABA) with pulmonary hygiene per RT - continue systemic steroids with a slow taper - continue empiric AB's - continue anxiolytics - tobacco abstinence counseled this admission - continue G.I. & VTE prophylaxis - continue other care per attending / other consultants - home oxygen evaluation at discharge - outpatient pulmonary clinic f/up with PFT's - d/c planning for next 24-48 hrs if tolerates taper .... re-evaluate in am & prn Subjective Date of service: 08/25/18 Principal diagnosis: Ac on Ch hypoxemic hypercapnic Resp failure; Respiratory Acidosis; AE-COPD Interval history: Patient is seen today for: Acute on chronic hypoxemic hypercapnic respiratory failure; Respiratory Acidosis; Acute chronic obstructive pulmonary disease exacerbation; Tobacco use disorder; Anxiety disorder; History of depression. Seen and examined at bedside; 24hour events reviewed; nursing and respiratory care staff consulted; no adverse overnight events reported to me; resting peacefully in bed; CTA negative for VTE but area of possible bronchiectasis / localized fibrosis in RUL noted; denies acute chest pains or palpitations Objective Vital Signs - 12hr 08/25/18 08/25/18 08/25/18 04:57 09:20 09:24 Temperature 97.8 F Pulse Rate 108 H Pulse Rate [ 110 H Posterior Bilateral Throughout] Respiratory 18 Rate Respiratory 20 Rate [Posterior Bilateral Throughout] Blood Pressure 156/91 O2 Sat by Pulse 96 95 Oximetry 08/25/18 08/25/18 08/25/18 09:44 11:50 11:54 Temperature 98.1 F Pulse Rate 113 H Pulse Rate [ 110 H Posterior Bilateral Throughout] Respiratory 20 Rate Respiratory 20 Rate [Posterior Bilateral Throughout] Blood Pressure 160/101 O2 Sat by Pulse 96 97 Oximetry Constitutional: no acute distress, other (elderly thin CF, normocephalic and atraumatic with increased respiratory effort at rest) Eyes: non-icteric ENT: oropharynx moist, other (mallampati 2) Neck: supple, no lymphadenopathy, no JVD Effort: mildly labored Ascultation: Bilateral: diminished breath sounds, rhonchi Percussion: Bilateral: not dull Cardiovascular: regular rate and rhythm Gastrointestinal: normoactive bowel sounds, soft, non-tender, non-distended Integumentary: normal Extremities: no cyanosis, no edema, pink and warm, pulses normal, no ischemia or petechiae Neurologic: normal mental status, non-focal exam, pupils equal and round, CN II- XII normal, motor strength normal and Psychiatric: mood appropriate, anxious CBC and BMP: 08/22/18 05:44 08/22/18 05:44 ABG, PT/INR, D-dimer: ABG POC ABG pH 7.315 (7.35-7.45) L 08/23/18 18:21 POC ABG pCO2 66.8 (35-45) H 08/23/18 18:21 POC ABG pO2 103 (80-105) 08/23/18 18:21 POC ABG HCO3 34.0 08/23/18 18:21 POC ABG Total CO2 36 08/23/18 18:21 POC ABG O2 Sat 97 08/23/18 18:21 PT/INR, D-dimer PT 13.3 Sec. (12.2-14.9) 08/21/18 13:12 INR 0.95 (0.87-1.13) 08/21/18 13:12 D-Dimer 313.47 ng/mlDDU (0-234) H 08/23/18 16:52 Abnormal lab findings: Abnormal Labs 08/21/18 08/21/18 08/21/18 12:20 12:31 13:12 Hgb 14.5 H Hct 43.5 H RDW 12.8 L Lymph % (Auto) Lymph # Seg Neutrophils % Seg Neuts % (Manual) 98.0 H Lymphocytes % (Manual) 2.0 L Seg Neutrophils # Man 8.5 H Lymphocytes # (Manual) 0.2 L D-Dimer POC ABG pH 7.181 L POC ABG pCO2 96.0 H POC ABG pO2 195 H Sodium 131 L Chloride 88.6 L Carbon Dioxide 32 H BUN Creatinine 0.5 L Glucose 110 H Calcium CK-MB (CK-2) 8.0 H CK-MB (CK-2) Rel Index 7.0 H 02/18/19 02/19/19 02/19/19 15:50 05:44 05:44 Hgb Hct RDW 13.0 L Lymph % (Auto) 6.9 L Lymph # 0.3 L Seg Neutrophils % 89.3 H Seg Neuts % (Manual) Lymphocytes % (Manual) Seg Neutrophils # Man Lymphocytes # (Manual) D-Dimer POC ABG pH 7.217 L POC ABG pCO2 86.5 H POC ABG pO2 74 L Sodium 136 L Chloride 96.8 L Carbon Dioxide 31 H BUN 19 H Creatinine 0.4 L Glucose 168 H Calcium 8.2 L CK-MB (CK-2) CK-MB (CK-2) Rel Index 08/22/18 08/23/18 08/23/18 12:55 16:52 18:21 Hgb Hct RDW Lymph % (Auto) Lymph # Seg Neutrophils % Seg Neuts % (Manual) Lymphocytes % (Manual) Seg Neutrophils # Man Lymphocytes # (Manual) D-Dimer 313.47 H POC ABG pH 7.296 L 7.315 L POC ABG pCO2 74.0 H 66.8 H POC ABG pO2 Sodium Chloride Carbon Dioxide BUN Creatinine Glucose Calcium CK-MB (CK-2) CK-MB (CK-2) Rel Index CT scan - chest: image reviewed Allied health notes reviewed: nursing
[2018-08-25] MEDS: APRESOLINE PO SCH (18:47)
[2018-08-25] MEDS: FLEXERIL PO PRN (19:40)
[2018-08-26] MEDS: SOLU-Medrol IV SCH ×3 (06:07→17:09)
[2018-08-26] MEDS: DUONEB *Not for PRN Use IH SCH ×3 (08:27→20:29)
[2018-08-26] MEDS: PULMICORT IH SCH ×2 (08:27→20:29)
[2018-08-26] MEDS: BROVANA NEBU IH SCH ×2 (08:28→20:29)
[2018-08-26] MEDS: ROCEPHIN/NS 2 GM/100 ML 2 GM/100 ML BAG IV SCH (10:50)
[2018-08-26] MEDS: LOVENOX SUB-Q SCH (10:51)
[2018-08-26] MEDS: XANAX PO SCH ×2 (10:51→21:00)
[2018-08-26] MEDS: ZITHROMAX PO SCH (10:51)
[2018-08-26] MEDS: PEPCID PO SCH ×2 (10:51→21:00)
[2018-08-26] MEDS: ZESTRIL PO SCH (10:52)
[2018-08-26] MEDS: CLARITIN PO SCH (10:52)
[2018-08-26] MEDS: SODIUM CHLORIDE FLUSH SYRINGE 10 ML IV SCH ×2 (10:52→21:00)
[2018-08-26] MEDS: APRESOLINE PO SCH ×4 (10:53→21:01)
[2018-08-26] MEDS: LYRICA PO SCH ×6 (10:55→20:51)
[2018-08-26] MEDS: IBUPROFEN PO SCH ×3 (12:29→17:07)
--- NOTE | 2018-08-26 13:36 | Progress Note ---
Assessment and Plan Assessment and plan: 58-year-old female patient with significant history of COPD on 2L of oxygen at home and fibromyalgia as admitted through emergency room with worsening shortness of breath acute on chronic respiratory failure, patient is being followed by [employer], --Acute exacerbation of COPD; bronchodilators, nebulizers Steroids and antibiotics and supportive care --Acute on chronic hypoxic respiratory failure; Secondary to COPD exacerbation Oxygen nebulizers and IV antibiotics and IV steroids and inhalation steroids, BiPAP as needed --Right upper lobe opacity on CT chest; Continue current management, pulmonary following --Elevated d-dimer ; negative for PE, negative during the --History of depression/anxiety; stable on medications --History of hypertension; moderate control, continue current antihypertensives, When necessary medications --Peripheral neuropathy; stable on gabapentin --DVT prophylaxis; Lovenox Closely monitor the patient and adjust management as needed Tapering dose of steroids, possible discharge in 1-2 days if stable Follow-up pulmonary evaluation and recommendations tentative dc home tomorrow History Interval history: Review of systems Constitutional: No fevers, no malaise, no joint pains CVS: No chest pain, no orthopnea, no dyspnea on exertion, no pedal edema GI: No abdominal pain, no diarrhea, no vomiting, no constipation Respiratory: She is still having intermittent wheezing and shortness of breath, but feels much better Hospitalist Physical - Physical exam Narrative exam: General.: Appears well, no distress, nontoxic HEENT: Moist mucous membranes, extraocular muscles intact, no lymphadenopathy Neck: supple Cardiac: S1-S2 heard Lungs: c decreased air entry Abdomen: soft , nontender, nondistended, bowel sounds positive Extremities: no edema clubbing or cyanosis Skin: no rash or lesions Neurologic: no gross focal deficits Psych: calm, and cooperative - Constitutional Vitals: Temp Pulse Resp BP Pulse Ox 97.5 F L 118 H 20 140/88 95 08/26/18 04:37 08/26/18 10:52 08/26/18 08:15 08/26/18 10:52 08/26/18 08:29 General appearance: Present: no acute distress, cachectic, disheveled Results - Labs CBC & Chem 7: 08/22/18 05:44 08/22/18 05:44 Labs: Laboratory Last Values WBC 4.6 K/mm3 (4.5-11.0) 08/22/18 05:44 RBC 4.09 M/mm3 (3.65-5.03) 08/22/18 05:44 Hgb 12.9 gm/dl (10.1-14.3) 08/22/18 05:44 Hct 38.9 % (30.3-42.9) 08/22/18 05:44 MCV 95 fl (79-97) 08/22/18 05:44 MCH 32 pg (28-32) 08/22/18 05:44 MCHC 33 % (30-34) 08/22/18 05:44 RDW 13.0 % (13.2-15.2) L 08/22/18 05:44 Plt Count 245 K/mm3 (140-440) 08/22/18 05:44 Lymph % (Auto) 6.9 % (13.4-35.0) L 08/22/18 05:44 [place] % (Auto) 3.3 % (0.0-7.3) 08/22/18 05:44 Eos % (Auto) 0.0 % (0.0-4.3) 08/22/18 05:44 Baso % (Auto) 0.5 % (0.0-1.8) 08/22/18 05:44 Lymph # 0.3 K/mm3 (1.2-5.4) L 08/22/18 05:44 [place] # 0.2 K/mm3 (0.0-0.8) 08/22/18 05:44 Eos # 0.0 K/mm3 (0.0-0.4) 08/22/18 05:44 Baso # 0.0 K/mm3 (0.0-0.1) 08/22/18 05:44 Add Manual Diff Complete 08/21/18 12:31 Total Counted 100 08/21/18 12:31 Seg Neutrophils % 89.3 % (40.0-70.0) H 08/22/18 05:44 Seg Neuts % (Manual) 98.0 % (40.0-70.0) H 08/21/18 12:31 Band Neutrophils % 0 % 08/21/18 12:31 Lymphocytes % (Manual) 2.0 % (13.4-35.0) L 08/21/18 12:31 Reactive Lymphs % (Man) 0 % 08/21/18 12:31 Monocytes % (Manual) 0 % (0.0-7.3) 08/21/18 12:31 Eosinophils % (Manual) 0 % (0.0-4.3) 08/21/18 12:31 Basophils % (Manual) 0 % (0.0-1.8) 08/21/18 12:31 Metamyelocytes % 0 % 08/21/18 12:31 Myelocytes % 0 % 08/21/18 12:31 Promyelocytes % 0 % 08/21/18 12:31 Blast Cells % 0 % 08/21/18 12:31 Nucleated RBC % Not Reportable 08/21/18 12:31 Seg Neutrophils # 4.1 K/mm3 (1.8-7.7) 08/22/18 05:44 Seg Neutrophils # Man 8.5 K/mm3 (1.8-7.7) H 08/21/18 12:31 Band Neutrophils # 0.0 K/mm3 08/21/18 12:31 Lymphocytes # (Manual) 0.2 K/mm3 (1.2-5.4) L 08/21/18 12:31 Abs React Lymphs (Man) 0.0 K/mm3 08/21/18 12:31 Monocytes # (Manual) 0.0 K/mm3 (0.0-0.8) 08/21/18 12:31 Eosinophils # (Manual) 0.0 K/mm3 (0.0-0.4) 08/21/18 12:31 Basophils # (Manual) 0.0 K/mm3 (0.0-0.1) 08/21/18 12:31 Metamyelocytes # 0.0 K/mm3 08/21/18 12:31 Myelocytes # 0.0 K/mm3 08/21/18 12:31 Promyelocytes # 0.0 K/mm3 08/21/18 12:31 Blast Cells # 0.0 K/mm3 08/21/18 12:31 WBC Morphology Not Reportable 08/21/18 12:31 Hypersegmented Neuts Not Reportable 08/21/18 12:31 Hyposegmented Neuts Not Reportable 08/21/18 12:31 Hypogranular Neuts Not Reportable 08/21/18 12:31 Smudge Cells Not Reportable 08/21/18 12:31 Toxic Granulation Not Reportable 08/21/18 12:31 Toxic Vacuolation Not Reportable 08/21/18 12:31 Dohle Bodies Not Reportable 08/21/18 12:31 Pelger-[place]uet Anomaly Not Reportable 08/21/18 12:31 Jory Rods Not Reportable 08/21/18 12:31 Platelet Estimate Consistent w auto 08/21/18 12:31 Clumped Platelets Not Reportable 08/21/18 12:31 Plt Clumps, EDTA Not Reportable 08/21/18 12:31 Large Platelets Not Reportable 08/21/18 12:31 Giant Platelets Not Reportable 08/21/18 12:31 Platelet Satelliting Not Reportable 08/21/18 12:31 Plt Morphology Comment Not Reportable 08/21/18 12:31 RBC Morphology Not Reportable 08/21/18 12:31 Dimorphic RBCs Not Reportable 08/21/18 12:31 Polychromasia Not Reportable 08/21/18 12:31 Hypochromasia Not Reportable 08/21/18 12:31 Poikilocytosis 1+ 08/21/18 12:31 Anisocytosis 1+ 08/21/18 12:31 Microcytosis Not Reportable 08/21/18 12:31 Macrocytosis Not Reportable 08/21/18 12:31 Spherocytes Not Reportable 08/21/18 12:31 Pappenheimer Bodies Not Reportable 08/21/18 12:31 Sickle Cells Not Reportable 08/21/18 12:31 Target Cells Not Reportable 08/21/18 12:31 Tear Drop Cells Not Reportable 08/21/18 12:31 Ovalocytes Not Reportable 08/21/18 12:31 Helmet Cells Not Reportable 08/21/18 12:31 [place] Bodies Not Reportable 08/21/18 12:31 [place] Rings Not Reportable 08/21/18 12:31 [place] Cells Not Reportable 08/21/18 12:31 Bite Cells Not Reportable 08/21/18 12:31 Crenated Cell Not Reportable 08/21/18 12:31 Elliptocytes Not Reportable 08/21/18 12:31 Acanthocytes (Spur) Not Reportable 08/21/18 12:31 Rouleaux Not Reportable 08/21/18 12:31 Hemoglobin C Crystals Not Reportable 08/21/18 12:31 Schistocytes Not Reportable 08/21/18 12:31 Malaria parasites Not Reportable 08/21/18 12:31 Eugenio Bodies Not Reportable 08/21/18 12:31 Hem Pathologist Commnt No 08/21/18 12:31 PT 13.3 Sec. (12.2-14.9) 08/21/18 13:12 INR 0.95 (0.87-1.13) 08/21/18 13:12 APTT 27.2 Sec. (24.2-36.6) 08/21/18 13:12 D-Dimer 313.47 ng/mlDDU (0-234) H 08/23/18 16:52 POC ABG pH 7.315 (7.35-7.45) L 08/23/18 18:21 POC ABG pCO2 66.8 (35-45) H 08/23/18 18:21 POC ABG pO2 103 (80-105) 08/23/18 18:21 POC ABG HCO3 34.0 08/23/18 18:21 POC ABG Total CO2 36 08/23/18 18:21 POC ABG O2 Sat 97 08/23/18 18:21 POC ABG Base Excess 8 08/23/18 18:21 FiO2 32 % 08/23/18 18:21 Sodium 136 mmol/L (137-145) L 08/22/18 05:44 Potassium 5.0 mmol/L (3.6-5.0) 08/22/18 05:44 Chloride 96.8 mmol/L (98-107) L 08/22/18 05:44 Carbon Dioxide 31 mmol/L (22-30) H 08/22/18 05:44 Anion Gap 13 mmol/L 08/22/18 05:44 BUN 19 mg/dL (7-17) H 08/22/18 05:44 Creatinine 0.4 mg/dL (0.7-1.2) L 08/22/18 05:44 Estimated GFR > 60 ml/min 08/22/18 05:44 BUN/Creatinine Ratio 48 % 08/22/18 05:44 Glucose 168 mg/dL (65-100) H 08/22/18 05:44 Hemoglobin A1c 5.4 % (4-6) 08/21/18 12:41 Calcium 8.2 mg/dL (8.4-10.2) L 08/22/18 05:44 Total Creatine Kinase 114 units/L (30-135) 08/21/18 13:12 CK-MB (CK-2) 8.0 ng/mL (0.0-4.0) H 08/21/18 13:12 CK-MB (CK-2) Rel Index 7.0 (0-4) H 08/21/18 13:12 Troponin T < 0.010 ng/mL (0.00-0.029) 08/21/18 13:12 NT-Pro-B Natriuret Pep 719.5 pg/mL (0-900) 08/21/18 13:12 Nutrition/Malnutrition Assess - Dietary Evaluation Nutrition/Malnutrition Findings: Nutrition Notes Start: 08/23/18 10:27 Freq: Status: Active Protocol: Document 08/24/18 11:06 (Rec: 08/24/18 11:37 [email or web address]) Co-Sign 08/24/18 11:06 Nutrition Notes Initial or Follow up Brief Note Current Diagnosis COPD Hypertension Respiratory Failure Other Pertinent Diagnosis Fibromyalgia, anxiety/ depression Current Diet Regular with Ensure Enlive BID Subjective/Other Information Pt seen for low BMI. Observed pt. tray with 100% of food missing. Pt. stated she has not been recieving Ensure Enlive on her trays, so intern architect brought one to her room. Pt. stated she was experiencing nausea yesterday and the day before, but was feeling better today. Nutrition Intervention Follow-Up By: 08/28/18 Additional Comments F/u for PO and ONS intakes
--- NOTE | 2018-08-26 13:56 | Progress Note ---
Assessment and Plan Acute on chronic hypoxemic hypercapnic respiratory failure. Respiratory Acidosis Acute chronic obstructive pulmonary disease exacerbation. Tobacco use disorder. Anxiety disorder. History of depression. Mild hyponatremia. Elevated serum glucose. - continue supplemental but restrictive oxygen therapy to keep sats approximate ly 88-92% acutely - continue bronchodilators (VIDA & LABA) with pulmonary hygiene per RT - continue systemic steroids with a slow taper (reduced to 40mg q12h) - continue empiric AB's - continue anxiolytics - tobacco abstinence counseled this admission - continue G.I. & VTE prophylaxis - continue other care per attending / other consultants - home oxygen evaluation at discharge - outpatient pulmonary clinic f/up with PFT's - d/c planning for next 24-48 hrs if tolerates taper .... re-evaluate in am & prn Subjective Date of service: 08/26/18 Principal diagnosis: Ac on Ch hypoxemic hypercapnic Resp failure; Respiratory Acidosis; AE-COPD Interval history: Patient is seen today for: Acute on chronic hypoxemic hypercapnic respiratory failure; Respiratory Acidosis; Acute chronic obstructive pulmonary disease exacerbation; Tobacco use disorder; Anxiety disorder; History of depression. Seen and examined at bedside; 24hour events reviewed; nursing and respiratory care staff consulted; no adverse overnight events reported to me; resting peacefully in bed; feels and looks better; less work of breathing; denies acute chest pains or palpitations; remains on supplemental oxygen Objective Vital Signs - 12hr 08/26/18 08/26/18 08/26/18 04:37 08:00 08:15 Temperature 97.5 F L Pulse Rate 100 H Pulse Rate [ 118 H 120 H Posterior Bilateral Throughout] Respiratory 18 Rate Respiratory 18 20 Rate [Posterior Bilateral Throughout] Blood Pressure 148/80 O2 Sat by Pulse 99 Oximetry 08/26/18 08/26/18 08:29 10:52 Temperature Pulse Rate 118 H Pulse Rate [ Posterior Bilateral Throughout] Respiratory Rate Respiratory Rate [Posterior Bilateral Throughout] Blood Pressure 140/88 O2 Sat by Pulse 95 Oximetry Constitutional: no acute distress, other (elderly thin CF, normocephalic and atraumatic with increased respiratory effort at rest) Eyes: non-icteric ENT: oropharynx moist, other (mallampati 2) Neck: supple, no lymphadenopathy, no JVD Effort: mildly labored Ascultation: Bilateral: diminished breath sounds, rhonchi Percussion: Bilateral: not dull Cardiovascular: regular rate and rhythm Gastrointestinal: normoactive bowel sounds, soft, non-tender, non-distended Integumentary: normal Extremities: no cyanosis, no edema, pink and warm, pulses normal, no ischemia or petechiae Neurologic: normal mental status, non-focal exam, pupils equal and round, CN II- XII normal, motor strength normal and Psychiatric: mood appropriate, anxious CBC and BMP: 08/22/18 05:44 08/22/18 05:44 ABG, PT/INR, D-dimer: ABG POC ABG pH 7.315 (7.35-7.45) L 08/23/18 18:21 POC ABG pCO2 66.8 (35-45) H 08/23/18 18:21 POC ABG pO2 103 (80-105) 08/23/18 18:21 POC ABG HCO3 34.0 08/23/18 18:21 POC ABG Total CO2 36 08/23/18 18:21 POC ABG O2 Sat 97 08/23/18 18:21 PT/INR, D-dimer PT 13.3 Sec. (12.2-14.9) 08/21/18 13:12 INR 0.95 (0.87-1.13) 08/21/18 13:12 D-Dimer 313.47 ng/mlDDU (0-234) H 08/23/18 16:52 Abnormal lab findings: Abnormal Labs 08/21/18 08/21/18 08/21/18 12:20 12:31 13:12 Hgb 14.5 H Hct 43.5 H RDW 12.8 L Lymph % (Auto) Lymph # Seg Neutrophils % Seg Neuts % (Manual) 98.0 H Lymphocytes % (Manual) 2.0 L Seg Neutrophils # Man 8.5 H Lymphocytes # (Manual) 0.2 L D-Dimer POC ABG pH 7.181 L POC ABG pCO2 96.0 H POC ABG pO2 195 H Sodium 131 L Chloride 88.6 L Carbon Dioxide 32 H BUN Creatinine 0.5 L Glucose 110 H Calcium CK-MB (CK-2) 8.0 H CK-MB (CK-2) Rel Index 7.0 H 08/21/18 08/22/18 08/22/18 15:50 05:44 05:44 Hgb Hct RDW 13.0 L Lymph % (Auto) 6.9 L Lymph # 0.3 L Seg Neutrophils % 89.3 H Seg Neuts % (Manual) Lymphocytes % (Manual) Seg Neutrophils # Man Lymphocytes # (Manual) D-Dimer POC ABG pH 7.217 L POC ABG pCO2 86.5 H POC ABG pO2 74 L Sodium 136 L Chloride 96.8 L Carbon Dioxide 31 H BUN 19 H Creatinine 0.4 L Glucose 168 H Calcium 8.2 L CK-MB (CK-2) CK-MB (CK-2) Rel Index 08/22/18 08/23/18 08/23/18 12:55 16:52 18:21 Hgb Hct RDW Lymph % (Auto) Lymph # Seg Neutrophils % Seg Neuts % (Manual) Lymphocytes % (Manual) Seg Neutrophils # Man Lymphocytes # (Manual) D-Dimer 313.47 H POC ABG pH 7.296 L 7.315 L POC ABG pCO2 74.0 H 66.8 H POC ABG pO2 Sodium Chloride Carbon Dioxide BUN Creatinine Glucose Calcium CK-MB (CK-2) CK-MB (CK-2) Rel Index Allied health notes reviewed: nursing
[2018-08-27] MEDS: SOLU-Medrol IV SCH ×2 (06:06→17:14)
[2018-08-27] MEDS: BROVANA NEBU IH SCH ×2 (08:00→19:51)
[2018-08-27] MEDS ORDERED: APRESOLINE PO SCH (08:00)
[2018-08-27] MEDS: PULMICORT IH SCH ×2 (08:00→19:51)
[2018-08-27] MEDS: DUONEB *Not for PRN Use IH SCH ×3 (08:00→19:51)
[2018-08-27] MEDS: XANAX PO SCH ×2 (09:41→21:56)
[2018-08-27] MEDS: LOVENOX SUB-Q SCH (09:41)
[2018-08-27] MEDS: ROCEPHIN/NS 2 GM/100 ML 2 GM/100 ML BAG IV SCH (09:41)
[2018-08-27] MEDS: LYRICA PO SCH ×6 (09:41→21:56)
[2018-08-27] MEDS: PEPCID PO SCH ×2 (09:42→21:56)
[2018-08-27] MEDS: ZESTRIL PO SCH (09:42)
[2018-08-27] MEDS: FLEXERIL PO PRN ×2 (09:43→21:56)
[2018-08-27] MEDS: APRESOLINE PO SCH ×3 (09:43→21:57)
[2018-08-27] MEDS: ZITHROMAX PO SCH (09:43)
[2018-08-27] MEDS: IBUPROFEN PO SCH ×3 (09:44→17:13)
[2018-08-27] MEDS: CLARITIN PO SCH (09:53)
[2018-08-27] MEDS: PERCOCET 5/325 PO PRN ×2 (12:37→18:48)
--- NOTE | 2018-08-27 13:28 | Discharge Summary ---
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 Consulting Provider: ROMÁN VIZCARRA Physician Instructions: Reason For Exam: Resp failure [facility] Condition[facility] Hospital course: 58-year-old female patient with significant history of COPD on 2L of oxygen at home and fibromyalgia as admitted through emergency room with worsening shortness of breath acute on chronic respiratory failure, She was treated with steroids and nebulizers and antibiotics, she clinically improved and was weaned back to her BL oxygen settings D dimer was elevated, therefore she had PE study which was negative she improved and was dc on steroid taper, inhalers were also optimized prior to dc Diagnosis --Acute exacerbation of COPD; bronchodilators, nebulizers --Acute on chronic hypoxic respiratory failure; --History of depression/anxiety; --History of hypertension; --Peripheral neuropathy; Disposition: DC-01 TO HOME OR SELFCARE Time spent for discharge: 33 mins Core Measure Documentation - Palliative Care Palliative Care/ Comfort Measures: Not Applicable - Core Measures Any of the following diagnoses?: none Exam - Constitutional Vitals: Temp Pulse Resp BP Pulse Ox 98.1 F 108 H 18 147/86 94 08/27/18 06:08 08/27/18 09:42 08/27/18 08:12 08/27/18 09:42 08/27/18 09:30 General appearance: Present: no acute distress, well-nourished - EENT Eyes: Present: PERRL ENT: hearing intact, clear oral mucosa - Neck Neck: Present: supple, normal ROM - Respiratory Respiratory effort: normal Respiratory: bilateral: CTA - Cardiovascular Heart Sounds: Present: S1 & S2. Absent: rub, click - Extremities Extremities: pulses symmetrical, No edema Peripheral Pulses: within normal limits - Abdominal General gastrointestinal: Present: soft, non-tender, non-distended, normal bowel sounds Female genitourinary: Present: normal - Integumentary Integumentary: Present: clear, warm, dry - Musculoskeletal Musculoskeletal: gait normal, strength equal bilaterally - Psychiatric Psychiatric: appropriate mood/affect, intact judgment & insight - Neurologic Neurologic: CNII-XII intact, moves all extremities Plan Follow up with: WILBERTO CRAWFORD MD [Primary Care Provider] - 3-5 Days ROMÁN VIZCARRA MD [Staff Physician] - 7 Days Prescriptions: ALBUTEROL Inhaler(NF) [VENTOLIN Inhaler(NF)] 1 puff IH Q4H PRN #1 inha PRN Reason: Wheezing Albuterol Sulfate [Albuterol 0.63% NEBS] 0.63 mg IH Q6H PRN #120 ml PRN Reason: Wheezing Budesonide/Formoterol Fumarate [Symbicort 160-4.5 Mcg Inhaler] 10.2 gm IH BID #1 hfa.aer.ad predniSONE [Deltasone] 10 mg PO .TAPER #48 tab Tiotropium [place] [Spiriva Respimat] 4 gm IH DAILY #1 mist.inhal traMADol [Ultram 50 MG tab] 50 mg PO Q6HR PRN #14 tablet PRN Reason: Pain
[2018-08-27] MEDS: SODIUM CHLORIDE FLUSH SYRINGE 10 ML IV SCH ×2 (15:32→21:58)
--- NOTE | 2018-08-27 15:57 | Progress Note ---
Assessment and Plan Acute on chronic hypoxemic hypercapnic respiratory failure. Respiratory Acidosis Acute chronic obstructive pulmonary disease exacerbation. Tobacco use disorder. Anxiety disorder. History of depression. Mild hyponatremia. Elevated serum glucose. - continue supplemental but restrictive oxygen therapy to keep sats approximate ly 88-92% acutely - continue bronchodilators (VIDA & LABA) with pulmonary hygiene per RT - continue systemic steroids with a slow taper (taper to prednisone tabs) - complete empiric AB's course for CAP - continue anxiolytics - tobacco abstinence counseled this admission - continue G.I. & VTE prophylaxis - continue other care per attending / other consultants - home oxygen obtained - outpatient pulmonary clinic f/up with PFT's - d/c planning ok pulmonary caicedo .... re-evaluate in am & prn Subjective Date of service: 08/27/18 Principal diagnosis: Ac on Ch hypoxemic hypercapnic Resp failure; Respiratory Acidosis; AE-COPD Interval history: Patient is seen today for: Acute on chronic hypoxemic hypercapnic respiratory failure; Respiratory Acidosis; Acute chronic obstructive pulmonary disease exacerbation; Tobacco use disorder; Anxiety disorder; History of depression. Seen and examined at bedside; 24hour events reviewed; nursing and respiratory care staff consulted; no adverse overnight events reported to me; resting peace fully in bed; no new issues; ready to go home; No N/V/F/C; denies acute chest pains or palpitations Objective Vital Signs - 12hr 08/27/18 08/27/18 08/27/18 06:08 08:00 08:12 Temperature 98.1 F Pulse Rate 98 H Pulse Rate [ 104 H 106 H Posterior Bilateral Throughout] Respiratory 18 Rate Respiratory 18 18 Rate [Posterior Bilateral Throughout] Blood Pressure 147/86 O2 Sat by Pulse 95 Oximetry 08/27/18 08/27/18 08/27/18 09:30 09:42 11:38 Temperature 98.1 F Pulse Rate 108 H Pulse Rate [ Posterior Bilateral Throughout] Respiratory 20 Rate Respiratory Rate [Posterior Bilateral Throughout] Blood Pressure 147/86 142/77 O2 Sat by Pulse 94 Oximetry 08/27/18 15:31 Temperature Pulse Rate 98 H Pulse Rate [ Posterior Bilateral Throughout] Respiratory Rate Respiratory Rate [Posterior Bilateral Throughout] Blood Pressure 142/77 O2 Sat by Pulse Oximetry Constitutional: no acute distress, other (elderly thin CF, normocephalic and atraumatic with increased respiratory effort at rest) Eyes: non-icteric ENT: oropharynx moist, other (mallampati 2) Neck: supple, no lymphadenopathy, no JVD Effort: mildly labored Ascultation: Bilateral: diminished breath sounds, rhonchi Percussion: Bilateral: not dull Cardiovascular: regular rate and rhythm Gastrointestinal: normoactive bowel sounds, soft, non-tender, non-distended Integumentary: normal Extremities: no cyanosis, no edema, pink and warm, pulses normal, no ischemia or petechiae Neurologic: normal mental status, non-focal exam, pupils equal and round, CN II- XII normal, motor strength normal and Psychiatric: mood appropriate, anxious CBC and BMP: 08/22/18 05:44 08/22/18 05:44 ABG, PT/INR, D-dimer: ABG POC ABG pH 7.315 (7.35-7.45) L 08/23/18 18:21 POC ABG pCO2 66.8 (35-45) H 08/23/18 18:21 POC ABG pO2 103 (80-105) 08/23/18 18:21 POC ABG HCO3 34.0 08/23/18 18:21 POC ABG Total CO2 36 08/23/18 18:21 POC ABG O2 Sat 97 08/23/18 18:21 PT/INR, D-dimer PT 13.3 Sec. (12.2-14.9) 08/21/18 13:12 INR 0.95 (0.87-1.13) 08/21/18 13:12 D-Dimer 313.47 ng/mlDDU (0-234) H 08/23/18 16:52 Abnormal lab findings: Abnormal Labs 08/21/18 08/21/18 08/21/18 12:20 12:31 13:12 Hgb 14.5 H Hct 43.5 H RDW 12.8 L Lymph % (Auto) Lymph # Seg Neutrophils % Seg Neuts % (Manual) 98.0 H Lymphocytes % (Manual) 2.0 L Seg Neutrophils # Man 8.5 H Lymphocytes # (Manual) 0.2 L D-Dimer POC ABG pH 7.181 L POC ABG pCO2 96.0 H POC ABG pO2 195 H Sodium 131 L Chloride 88.6 L Carbon Dioxide 32 H BUN Creatinine 0.5 L Glucose 110 H Calcium CK-MB (CK-2) 8.0 H CK-MB (CK-2) Rel Index 7.0 H 08/21/18 08/22/18 08/22/18 15:50 05:44 05:44 Hgb Hct RDW 13.0 L Lymph % (Auto) 6.9 L Lymph # 0.3 L Seg Neutrophils % 89.3 H Seg Neuts % (Manual) Lymphocytes % (Manual) Seg Neutrophils # Man Lymphocytes # (Manual) D-Dimer POC ABG pH 7.217 L POC ABG pCO2 86.5 H POC ABG pO2 74 L Sodium 136 L Chloride 96.8 L Carbon Dioxide 31 H BUN 19 H Creatinine 0.4 L Glucose 168 H Calcium 8.2 L CK-MB (CK-2) CK-MB (CK-2) Rel Index 08/22/18 08/23/18 08/23/18 12:55 16:52 18:21 Hgb Hct RDW Lymph % (Auto) Lymph # Seg Neutrophils % Seg Neuts % (Manual) Lymphocytes % (Manual) Seg Neutrophils # Man Lymphocytes # (Manual) D-Dimer 313.47 H POC ABG pH 7.296 L 7.315 L POC ABG pCO2 74.0 H 66.8 H POC ABG pO2 Sodium Chloride Carbon Dioxide BUN Creatinine Glucose Calcium CK-MB (CK-2) CK-MB (CK-2) Rel Index Allied health notes reviewed: nursing
[2018-08-28] MEDS: SOLU-Medrol IV SCH (05:42)
[2018-08-28] MEDS: APRESOLINE PO SCH (08:42)
[2018-08-28] MEDS: IBUPROFEN PO SCH ×2 (08:42→11:05)
[2018-08-28] MEDS: LYRICA PO SCH ×2 (08:43)
[2018-08-28] MEDS: BROVANA NEBU IH SCH (08:56)
[2018-08-28] MEDS: PULMICORT IH SCH (08:56)
[2018-08-28] MEDS: DUONEB *Not for PRN Use IH SCH (08:56)
[2018-08-28] MEDS: ZITHROMAX PO SCH (11:05)
[2018-08-28] MEDS: CLARITIN PO SCH (11:06)
[2018-08-28] MEDS: LOVENOX SUB-Q SCH (11:06)
[2018-08-28] MEDS: XANAX PO SCH (11:06)
[2018-08-28] MEDS: SODIUM CHLORIDE FLUSH SYRINGE 10 ML IV SCH (11:06)
[2018-08-28] MEDS: PEPCID PO SCH (11:06)
[2018-08-28] MEDS: ZESTRIL PO SCH (11:08)
[2018-08-28 11:09] VITALS: BP 135/63
[2018-08-28] MEDS: FLEXERIL PO PRN (11:12)
--- NOTE | 2018-08-28 11:45 | Progress Note ---
Assessment and Plan Acute on chronic hypoxemic hypercapnic respiratory failure. Respiratory Acidosis Acute chronic obstructive pulmonary disease exacerbation. Tobacco use disorder. Anxiety disorder. History of depression. Mild hyponatremia. Elevated serum glucose. - continue supplemental but restrictive oxygen therapy to keep sats approximat diane 88-92% acutely - continue bronchodilators (VIDA & LABA) with pulmonary hygiene per RT - continue systemic steroids with a slow taper (reduced to 40mg q12h) - continue empiric AB's - continue anxiolytics - tobacco abstinence counseled this admission - continue G.I. & VTE prophylaxis - continue other care per attending / other consultants - home oxygen evaluation at discharge - outpatient pulmonary clinic f/up with PFT's Subjective Date of service: 08/28/18 Principal diagnosis: Ac on Ch hypoxemic hypercapnic Resp failure; Respiratory Acidosis; AE-COPD Interval history: Patient is seen today for: Acute on chronic hypoxemic hypercapnic respiratory f ailure; Respiratory Acidosis; Acute chronic obstructive pulmonary disease exacerbation; Tobacco use disorder; Anxiety disorder; History of depression. Seen and examined at bedside; 24hour events reviewed; nursing and respiratory care staff consulted; no adverse overnight events reported to me; resting peacefully in bed; Objective Vital Signs - 12hr 08/28/18 08/28/18 08/28/18 00:09 05:33 08:42 Temperature 97.8 F 97.8 F Pulse Rate 107 H 96 H 96 H Pulse Rate [ Posterior Bilateral Throughout] Respiratory 20 18 Rate Respiratory Rate [Posterior Bilateral Throughout] Blood Pressure 99/61 112/57 112/57 O2 Sat by Pulse 95 98 Oximetry 08/28/18 08/28/18 08/28/18 08:56 09:15 11:08 Temperature Pulse Rate Pulse Rate [ 117 H 115 H Posterior Bilateral Throughout] Respiratory Rate Respiratory 20 20 Rate [Posterior Bilateral Throughout] Blood Pressure 135/63 O2 Sat by Pulse 92 Oximetry Constitutional: no acute distress, other (elderly thin CF, normocephalic and a traumatic with increased respiratory effort at rest) Eyes: non-icteric ENT: oropharynx moist, other (mallampati 2) Neck: supple, no lymphadenopathy, no JVD Effort: mildly labored Ascultation: Bilateral: diminished breath sounds, rhonchi Percussion: Bilateral: not dull Cardiovascular: regular rate and rhythm Gastrointestinal: normoactive bowel sounds, soft, non-tender, non-distended Integumentary: normal Extremities: no cyanosis, no edema, pink and warm, pulses normal, no ischemia or petechiae Neurologic: normal mental status, non-focal exam, pupils equal and round, CN II- XII normal, motor strength normal and Psychiatric: mood appropriate, anxious CBC and BMP: 08/22/18 05:44 08/22/18 05:44 ABG, PT/INR, D-dimer: ABG POC ABG pH 7.315 (7.35-7.45) L 08/23/18 18:21 POC ABG pCO2 66.8 (35-45) H 08/23/18 18:21 POC ABG pO2 103 (80-105) 08/23/18 18:21 POC ABG HCO3 34.0 08/23/18 18:21 POC ABG Total CO2 36 08/23/18 18:21 POC ABG O2 Sat 97 08/23/18 18:21 PT/INR, D-dimer PT 13.3 Sec. (12.2-14.9) 08/21/18 13:12 INR 0.95 (0.87-1.13) 08/21/18 13:12 D-Dimer 313.47 ng/mlDDU (0-234) H 08/23/18 16:52 Abnormal lab findings: Abnormal Labs 08/21/18 08/21/18 08/21/18 12:20 12:31 13:12 Hgb 14.5 H Hct 43.5 H RDW 12.8 L Lymph % (Auto) Lymph # Seg Neutrophils % Seg Neuts % (Manual) 98.0 H Lymphocytes % (Manual) 2.0 L Seg Neutrophils # Man 8.5 H Lymphocytes # (Manual) 0.2 L D-Dimer POC ABG pH 7.181 L POC ABG pCO2 96.0 H POC ABG pO2 195 H Sodium 131 L Chloride 88.6 L Carbon Dioxide 32 H BUN Creatinine 0.5 L Glucose 110 H Calcium CK-MB (CK-2) 8.0 H CK-MB (CK-2) Rel Index 7.0 H 08/21/18 08/22/18 08/22/18 15:50 05:44 05:44 Hgb Hct RDW 13.0 L Lymph % (Auto) 6.9 L Lymph # 0.3 L Seg Neutrophils % 89.3 H Seg Neuts % (Manual) Lymphocytes % (Manual) Seg Neutrophils # Man Lymphocytes # (Manual) D-Dimer POC ABG pH 7.217 L POC ABG pCO2 86.5 H POC ABG pO2 74 L Sodium 136 L Chloride 96.8 L Carbon Dioxide 31 H BUN 19 H Creatinine 0.4 L Glucose 168 H Calcium 8.2 L CK-MB (CK-2) CK-MB (CK-2) Rel Index 08/22/18 08/23/18 08/23/18 12:55 16:52 18:21 Hgb Hct RDW Lymph % (Auto) Lymph # Seg Neutrophils % Seg Neuts % (Manual) Lymphocytes % (Manual) Seg Neutrophils # Man Lymphocytes # (Manual) D-Dimer 313.47 H POC ABG pH 7.296 L 7.315 L POC ABG pCO2 74.0 H 66.8 H POC ABG pO2 Sodium Chloride Carbon Dioxide BUN Creatinine Glucose Calcium CK-MB (CK-2) CK-MB (CK-2) Rel Index Allied health notes reviewed: nursing
[2018-08-28] MEDS: ROCEPHIN/NS 2 GM/100 ML 2 GM/100 ML BAG IV SCH (11:53)
--- NOTE | 2018-08-29 17:00 | Progress Note ---
Assessment and Plan Assessment and plan: 58-year-old female patient with significant history of COPD on 2L of oxygen at home and fibromyalgia as admitted through emergency room with worsening shortness of breath acute on chronic respiratory failure, patient is being followed by recreational vehicle repairer, --Acute exacerbation of COPD; bronchodilators, nebulizers Steroids and antibiotics and supportive care --Acute on chronic hypoxic respiratory failure; Secondary to COPD exacerbation Oxygen nebulizers and IV antibiotics and IV steroids and inhalation steroids, BiPAP as needed --Right upper lobe opacity on CT chest; Continue current management, pulmonary following --Elevated d-dimer ; negative for PE, negative during the --History of depression/anxiety; stable on medications --History of hypertension; moderate control, continue current antihypertensives, When necessary medications --Peripheral neuropathy; stable on gabapentin --DVT prophylaxis; Lovenox Closely monitor the patient and adjust management as needed Tapering dose of steroids, possible discharge in 1-2 days if stable Follow-up pulmonary evaluation and recommendations tentative dc home tomorrow History Interval history: Review of systems Constitutional: No fevers, no malaise, no joint pains CVS: No chest pain, no orthopnea, no dyspnea on exertion, no pedal edema GI: No abdominal pain, no diarrhea, no vomiting, no constipation Respiratory: She is still having intermittent wheezing and shortness of breath, but feels much better Hospitalist Physical - Physical exam Narrative exam: General.: Appears well, no distress, nontoxic HEENT: Moist mucous membranes, extraocular muscles intact, no lymphadenopathy Neck: supple Cardiac: S1-S2 heard Lungs: c decreased air entry Abdomen: soft , nontender, nondistended, bowel sounds positive Extremities: no edema clubbing or cyanosis Skin: no rash or lesions Neurologic: no gross focal deficits Psych: calm, and cooperative - Constitutional Vitals: Temp Pulse Resp BP Pulse Ox 98.3 F 125 H 20 135/63 95 08/28/18 11:05 08/28/18 11:05 08/28/18 11:05 08/28/18 11:08 08/28/18 11:05 General appearance: Present: no acute distress, cachectic, disheveled Results - Labs CBC & Chem 7: 08/22/18 05:44 08/22/18 05:44 Labs: Laboratory Last Values WBC 4.6 K/mm3 (4.5-11.0) 08/22/18 05:44 RBC 4.09 M/mm3 (3.65-5.03) 08/22/18 05:44 Hgb 12.9 gm/dl (10.1-14.3) 08/22/18 05:44 Hct 38.9 % (30.3-42.9) 08/22/18 05:44 MCV 95 fl (79-97) 08/22/18 05:44 MCH 32 pg (28-32) 08/22/18 05:44 MCHC 33 % (30-34) 08/22/18 05:44 RDW 13.0 % (13.2-15.2) L 08/22/18 05:44 Plt Count 245 K/mm3 (140-440) 08/22/18 05:44 Lymph % (Auto) 6.9 % (13.4-35.0) L 08/22/18 05:44 [place] % (Auto) 3.3 % (0.0-7.3) 08/22/18 05:44 Eos % (Auto) 0.0 % (0.0-4.3) 08/22/18 05:44 Baso % (Auto) 0.5 % (0.0-1.8) 08/22/18 05:44 Lymph # 0.3 K/mm3 (1.2-5.4) L 08/22/18 05:44 [place] # 0.2 K/mm3 (0.0-0.8) 08/22/18 05:44 Eos # 0.0 K/mm3 (0.0-0.4) 08/22/18 05:44 Baso # 0.0 K/mm3 (0.0-0.1) 08/22/18 05:44 Add Manual Diff Complete 08/21/18 12:31 Total Counted 100 08/21/18 12:31 Seg Neutrophils % 89.3 % (40.0-70.0) H 08/22/18 05:44 Seg Neuts % (Manual) 98.0 % (40.0-70.0) H 08/21/18 12:31 Band Neutrophils % 0 % 08/21/18 12:31 Lymphocytes % (Manual) 2.0 % (13.4-35.0) L 08/21/18 12:31 Reactive Lymphs % (Man) 0 % 08/21/18 12:31 Monocytes % (Manual) 0 % (0.0-7.3) 08/21/18 12:31 Eosinophils % (Manual) 0 % (0.0-4.3) 08/21/18 12:31 Basophils % (Manual) 0 % (0.0-1.8) 08/21/18 12:31 Metamyelocytes % 0 % 08/21/18 12:31 Myelocytes % 0 % 08/21/18 12:31 Promyelocytes % 0 % 08/21/18 12:31 Blast Cells % 0 % 08/21/18 12:31 Nucleated RBC % Not Reportable 08/21/18 12:31 Seg Neutrophils # 4.1 K/mm3 (1.8-7.7) 08/22/18 05:44 Seg Neutrophils # Man 8.5 K/mm3 (1.8-7.7) H 08/21/18 12:31 Band Neutrophils # 0.0 K/mm3 08/21/18 12:31 Lymphocytes # (Manual) 0.2 K/mm3 (1.2-5.4) L 08/21/18 12:31 Abs React Lymphs (Man) 0.0 K/mm3 08/21/18 12:31 Monocytes # (Manual) 0.0 K/mm3 (0.0-0.8) 08/21/18 12:31 Eosinophils # (Manual) 0.0 K/mm3 (0.0-0.4) 08/21/18 12:31 Basophils # (Manual) 0.0 K/mm3 (0.0-0.1) 08/21/18 12:31 Metamyelocytes # 0.0 K/mm3 08/21/18 12:31 Myelocytes # 0.0 K/mm3 08/21/18 12:31 Promyelocytes # 0.0 K/mm3 08/21/18 12:31 Blast Cells # 0.0 K/mm3 08/21/18 12:31 WBC Morphology Not Reportable 08/21/18 12:31 Hypersegmented Neuts Not Reportable 08/21/18 12:31 Hyposegmented Neuts Not Reportable 08/21/18 12:31 Hypogranular Neuts Not Reportable 08/21/18 12:31 Smudge Cells Not Reportable 08/21/18 12:31 Toxic Granulation Not Reportable 08/21/18 12:31 Toxic Vacuolation Not Reportable 08/21/18 12:31 Dohle Bodies Not Reportable 08/21/18 12:31 Pelger-Huet Anomaly Not Reportable 08/21/18 12:31 Jory Rods Not Reportable 08/21/18 12:31 Platelet Estimate Consistent w auto 08/21/18 12:31 Clumped Platelets Not Reportable 08/21/18 12:31 Plt Clumps, EDTA Not Reportable 08/21/18 12:31 Large Platelets Not Reportable 08/21/18 12:31 Giant Platelets Not Reportable 08/21/18 12:31 Platelet Satelliting Not Reportable 08/21/18 12:31 Plt Morphology Comment Not Reportable 08/21/18 12:31 RBC Morphology Not Reportable 08/21/18 12:31 Dimorphic RBCs Not Reportable 08/21/18 12:31 Polychromasia Not Reportable 08/21/18 12:31 Hypochromasia Not Reportable 08/21/18 12:31 Poikilocytosis 1+ 08/21/18 12:31 Anisocytosis 1+ 08/21/18 12:31 Microcytosis Not Reportable 08/21/18 12:31 Macrocytosis Not Reportable 08/21/18 12:31 Spherocytes Not Reportable 08/21/18 12:31 Pappenheimer Bodies Not Reportable 08/21/18 12:31 Sickle Cells Not Reportable 08/21/18 12:31 Target Cells Not Reportable 08/21/18 12:31 Tear Drop Cells Not Reportable 08/21/18 12:31 Ovalocytes Not Reportable 08/21/18 12:31 Helmet Cells Not Reportable 08/21/18 12:31 Peterson-Intercourse Bodies Not Reportable 08/21/18 12:31 Stonewall Rings Not Reportable 08/21/18 12:31 Emden Cells Not Reportable 08/21/18 12:31 Bite Cells Not Reportable 08/21/18 12:31 Crenated Cell Not Reportable 08/21/18 12:31 Elliptocytes Not Reportable 08/21/18 12:31 Acanthocytes (Spur) Not Reportable 08/21/18 12:31 Rouleaux Not Reportable 08/21/18 12:31 Hemoglobin C Crystals Not Reportable 08/21/18 12:31 Schistocytes Not Reportable 08/21/18 12:31 Malaria parasites Not Reportable 08/21/18 12:31 Eugenio Bodies Not Reportable 08/21/18 12:31 Hem Pathologist Commnt No 08/21/18 12:31 PT 13.3 Sec. (12.2-14.9) 08/21/18 13:12 INR 0.95 (0.87-1.13) 08/21/18 13:12 APTT 27.2 Sec. (24.2-36.6) 08/21/18 13:12 D-Dimer 313.47 ng/mlDDU (0-234) H 08/23/18 16:52 POC ABG pH 7.315 (7.35-7.45) L 08/23/18 18:21 POC ABG pCO2 66.8 (35-45) H 08/23/18 18:21 POC ABG pO2 103 (80-105) 08/23/18 18:21 POC ABG HCO3 34.0 08/23/18 18:21 POC ABG Total CO2 36 08/23/18 18:21 POC ABG O2 Sat 97 08/23/18 18:21 POC ABG Base Excess 8 08/23/18 18:21 FiO2 32 % 08/23/18 18:21 Sodium 136 mmol/L (137-145) L 08/22/18 05:44 Potassium 5.0 mmol/L (3.6-5.0) 08/22/18 05:44 Chloride 96.8 mmol/L (98-107) L 08/22/18 05:44 Carbon Dioxide 31 mmol/L (22-30) H 08/22/18 05:44 Anion Gap 13 mmol/L 08/22/18 05:44 BUN 19 mg/dL (7-17) H 08/22/18 05:44 Creatinine 0.4 mg/dL (0.7-1.2) L 08/22/18 05:44 Estimated GFR > 60 ml/min 08/22/18 05:44 BUN/Creatinine Ratio 48 % 08/22/18 05:44 Glucose 168 mg/dL (65-100) H 08/22/18 05:44 Hemoglobin A1c 5.4 % (4-6) 08/21/18 12:41 Calcium 8.2 mg/dL (8.4-10.2) L 08/22/18 05:44 Total Creatine Kinase 114 units/L (30-135) 08/21/18 13:12 CK-MB (CK-2) 8.0 ng/mL (0.0-4.0) H 08/21/18 13:12 CK-MB (CK-2) Rel Index 7.0 (0-4) H 08/21/18 13:12 Troponin T < 0.010 ng/mL (0.00-0.029) 08/21/18 13:12 NT-Pro-B Natriuret Pep 719.5 pg/mL (0-900) 08/21/18 13:12 Nutrition/Malnutrition Assess - Dietary Evaluation Nutrition/Malnutrition Findings: Nutrition Notes Start: 08/23/18 10:27 Freq: Status: Discharge Protocol: Document 08/24/18 11:06 (Rec: 08/24/18 11:37 [email or web address]) Co-Sign 08/24/18 11:06 Nutrition Notes Initial or Follow up Brief Note Current Diagnosis COPD Hypertension Respiratory Failure Other Pertinent Diagnosis Fibromyalgia, anxiety/ depression Current Diet Regular with Ensure Enlive BID Subjective/Other Information Pt seen for low BMI. Observed pt. tray with 100% of food missing. Pt. stated she has not been recieving Ensure Enlive on her trays, so marketing pr intern brought one to her room. Pt. stated she was experiencing nausea yesterday and the day before, but was feeling better today. Nutrition Intervention Follow-Up By: 08/28/18 Additional Comments F/u for PO and ONS intakes
== END 2018-08-28 13:10 | disposition home or self-care (01) | DRG 189 ==
LOC: ED 11:12 → IMCU 14:19 → 4A 08-22 13:31 → 3A 08-23 16:17
PROVIDERS: ADMIT Internal Medicine; ATTEND Internal Medicine
PROC: 4A033R1 Measurement of Arterial Saturation, Peripheral, Percutaneous Approach (ICD-10-PCS; principal; 2018-08-21)
PROC: 5A09357 Assistance with Respiratory Ventilation, Less than 24 Consecutive Hours, Continuous Positive Airway Pressure (ICD-10-PCS; 2018-08-21)
DX: J96.21 Acute and chronic respiratory failure with hypoxia (principal); J96.22 Acute and chronic respiratory failure with hypercapnia; J44.1 Chronic obstructive pulmonary disease with (acute) exacerbation; E87.1 Hypo-osmolality and hyponatremia; E87.2 Acidosis; F41.9 Anxiety disorder, unspecified; I10 Essential (primary) hypertension; G62.9 Polyneuropathy, unspecified; F41.1 Generalized anxiety disorder; F32.9 Major depressive disorder, single episode, unspecified; Z87.891 Personal history of nicotine dependence; Z99.81 Dependence on supplemental oxygen; Z79.899 Other long term (current) drug therapy; Z79.01 Long term (current) use of anticoagulants
CPT/HCPCS: 36415; 36600; 71045; 71275; 80048; 82550; 82553; 82803; 83036; 83880; 84484; 85007; 85025; 85379; 85610; 85730; 87040; 93005; 93010; 93970; 94640; 94760; 96365; 96375; G0378; J0456; J0696; J1650; J1956; J2060; J2405; J2920; J2930; J3475; J7030; J7050; Q9967